=== PATIENT | female | born 2000 | race Caucasian/White ===

== ENCOUNTER 2018-06-10 20:34 | Emergency (ER) | payer OTHER ==
[~2018-06-10] VITALS: Ht 170.2 cm; Wt 71.3 kg
[2018-06-10 20:39] VITALS: BP 132/94
[2018-06-10] MEDS ORDERED: diphenhydrAMINE 25mg capsule PO ONE (22:30)
== END 2018-06-10 22:52 | disposition home or self-care (01) ==
LOC: ER 20:35
DX: T78.40XA Allergy, unspecified, initial encounter (principal)
CPT/HCPCS: 99282; Q0163

== ENCOUNTER 2020-07-01 08:09 | Emergency (ER) | payer SELFPAY ==
[~2020-07-01] VITALS: Ht 170.2 cm; Wt 68.2 kg
[2020-07-01] MEDS ORDERED: epiNEPHrine 1 mg/ml inj ONE (08:11)
[2020-07-01] MEDS ORDERED: normal saline 1000ML IV soln IVB STA (08:11)
[2020-07-01] MEDS ORDERED: albuterol 2.5 MG/3 ML nebule ONE (08:12)
[2020-07-01] MEDS ORDERED: triamcinolone acetonide 40mg/ml inj IM ONE (08:15)
[2020-07-01] MEDS ORDERED: famotidine/PF 10 mg/ml inj IV ONE (08:15)
[2020-07-01] MEDS ORDERED: albuterol 2.5 MG/3 ML nebule NEB ONE (08:15)
[2020-07-01] MEDS ORDERED: epiNEPHrine 1 mg/ml inj IM ONE (08:15)
[2020-07-01] MEDS ORDERED: diphenhydrAMINE 50 mg/ml inj IV ONE (08:15)
[2020-07-01] MEDS ORDERED: methylPREDNISolone sod succ 125mg/2ml vial IV ONE (08:15)
[2020-07-01] MEDS: ondansetron/PF 4mg/2ml inj IV ONE ×2 (08:30→08:31)
--- NOTE | 2020-07-01 08:48 | NUR ---
PT RECIECVED EPI, RT TX, PEPCID, SOLUMEDROL, KENALOG, BENADRYL, AND NS 1L. PT TOLERATED WELL. PT DENIES THROAT TIGHTNESS OR SWELLING. LUNGS CLEAR. NO OTHER NEEDS AT THIS TIME
--- NOTE | 2020-07-01 09:02 | NUR ---
PATIENT AMBULATED TO BATHROOM AT THIS TIME INDEPENDENTLY. NO SIGNS OF DISTRESS NOTED, GAIT STEADY AND BALANCED.
[2020-07-01] MEDS ORDERED: EPIN0.1521 IM (10:19)
[2020-07-01 11:31] VITALS: BP 123/69
== END 2020-07-01 11:41 | disposition home or self-care (01) ==
LOC: ER 08:10
DX: T78.1XXA Other adverse food reactions, not elsewhere classified, initial encounter (principal); R13.10 Dysphagia, unspecified; Z88.1 Allergy status to other antibiotic agents; Z88.8 Allergy status to other drugs, medicaments and biological substances; Z91.010 Allergy to peanuts; Z79.899 Other long term (current) drug therapy; X58.XXXA Exposure to other specified factors, initial encounter
CPT/HCPCS: 94640; 96361; 96372; 96374; 96375; 99285; J0171; J1200; J2930; J3301; J3490; J7030; 94760; J2405

== ENCOUNTER 2020-07-07 19:27 | Emergency (ER) | payer SELFPAY ==
[~2020-07-07] VITALS: Ht 170.2 cm; Wt 52.3 kg
[~2020-07-07 19:27] MED LIST: EPIN0.1521 IM
[2020-07-07 20:44] VITALS: BP 125/75
== END 2020-07-07 20:44 | disposition home or self-care (01) ==
LOC: ER 19:27
DX: S63.616A Unspecified sprain of right little finger, initial encounter (principal); Z88.0 Allergy status to penicillin; Z88.6 Allergy status to analgesic agent; Z91.010 Allergy to peanuts; W21.01XA Struck by football, initial encounter; Y93.89 Activity, other specified; Y92.89 Other specified places as the place of occurrence of the external cause; Y99.8 Other external cause status
CPT/HCPCS: 73140; 99283

== ENCOUNTER 2020-07-09 16:16 | Emergency (ER) | payer OTHER ==
[~2020-07-09] VITALS: Ht 170.2 cm; Wt 68.2 kg
[2020-07-09] MEDS ORDERED: famotidine/PF 10 mg/ml inj IV ONE (16:30)
[2020-07-09] MEDS ORDERED: normal saline 1000ML IV soln IVB ONE (16:30)
[2020-07-09] MEDS ORDERED: methylPREDNISolone sod succ 125mg/2ml vial IV ONE (16:30)
[2020-07-09] MEDS ORDERED: ipratropium/albuterol 3ml nebule NEB ONE (16:30)
[2020-07-09] MEDS ORDERED: EPIN0.3P3 IM (17:11)
[2020-07-09 17:21] VITALS: BP 135/67
== END 2020-07-09 17:39 | disposition home or self-care (01) ==
LOC: ER 16:17
DX: R00.0 Tachycardia, unspecified (principal); T78.1XXA Other adverse food reactions, not elsewhere classified, initial encounter; R06.02 Shortness of breath; R07.89 Other chest pain; Z88.1 Allergy status to other antibiotic agents; Z88.8 Allergy status to other drugs, medicaments and biological substances; Z91.010 Allergy to peanuts; Z79.899 Other long term (current) drug therapy; X58.XXXA Exposure to other specified factors, initial encounter
CPT/HCPCS: 93005; 94640; 96374; 96375; 99291; J2930; J3490; J7030; 94760

== ENCOUNTER 2020-07-10 23:28 | Emergency (ER) | payer BC, OTHER ==
[~2020-07-10] VITALS: Ht 170.2 cm; Wt 84.1 kg
[~2020-07-10 23:28] MED LIST changes: +EPIN0.3P3 IM
[2020-07-11 00:02] LABS: BASOPHILS % (AUTO) 0.2 % (0-1); EOSINOPHILS % (AUTO) 0.2 % (0-6); HEMATOCRIT 38.6 % (35.0-45.0); LYMPHOCYTES % (AUTO) 29.2 % (21-51); MEAN CORPUSCULAR HEMOGLOBIN 30.5 PG (27.0-31.0); MEAN CORPUSCULAR HGB CONC 33.7 g/dL (33.0-36.5); MEAN CORPUSCULAR VOLUME 90.4 FL (78-98); MEAN PLATELET VOLUME 8.3 FL (7.4-10.4); MONOCYTES # (AUTO) 0.7 X10'3 (0-0.9); MONOCYTES % (AUTO) 7.1 % (2-12); NEUTROPHILS # (AUTO) 6.5 X10'3 (1.8-7.7); NEUTROPHILS % (AUTO) 63.3 % (42-75); PLATELET COUNT 391 X10'3 (140-440); RED BLOOD COUNT 4.27 X10'6 (4.20-5.60); RED CELL DISTRIBUTION WIDTH 14.3 % (11.5-14.5); WHITE BLOOD COUNT 10.2 X10'3 (4.5-11.0)
[2020-07-11 00:09] LABS: URINE HCG NEGATIVE (NEG)
[2020-07-11 00:11] LABS: CLARITY,URINE SLIGHTLY CLOUDY (Clear); GLUCOSE, URINE NEGATIVE (Neg); KETONES,URINE TRACE mg/dl (Neg); LEUKOCYTE ESTERASE ,URINE NEGATIVE (Neg); NITRITES, URINE NEGATIVE (Neg); OCCULT BLOOD,URINE NEGATIVE (Neg); PH,URINE 5.5 (4.8-8.0); PROTEIN,URINE NEGATIVE (Neg); UROBILINOGEN,URINE 0.2 E.U/dL (0.2-1.0)
[2020-07-11 00:16] LABS: COLOR,URINE DARK YELLOW (Yellow); UA COLLECTION TYPE CLN CATCH MIDSTREAM
[2020-07-11 00:17] LABS: ALANINE AMINOTRANSFERASE 22 U/L (12-78); ALBUMIN/GLOBULIN RATIO 1.3 (1.1-1.5); ALKALINE PHOSPHATASE 74 IU/L (46-116); ANION GAP 10 (8-16); ASPARTATE AMINO TRANSFERASE 10 U/L (10-37); BILIRUBIN,TOTAL 0.3 MG/DL (0.1-1.0); BLOOD UREA NITROGEN 7 MG/DL (7-18); BUN/CREATININE RATIO 6.2 (6.6-38.0); CALCIUM 8.9 MG/DL (8.5-10.1); CHLORIDE 108 MMOL/L (99-107); CREATININE 1.13 MG/DL (0.40-0.90); GLUCOSE 109 MG/DL (70-104); POTASSIUM 3.5 MMOL/L (3.5-5.1); SODIUM 143 MMOL/L (135-145); TOTAL CARBON DIOXIDE 24.9 MMOL/L (24-32); TOTAL PROTEIN 7.2 G/DL (6.4-8.2); eGFR 61 ML/MIN
[2020-07-11 00:18] LABS: BACTERIA,URINE 1+ /HPF (Neg); CAL OXALATE CRYSTALS 4+ /HPF (NEGATIVE); RBC,URINE NONE SEEN /HPF (0-2); SQUAMOUS EPITHELIAL CELL,UR MANY /LPF (FEW); WBC,URINE 0-4 /HPF (0-4)
[2020-07-11 03:34] VITALS: BP 112/67
--- NOTE | 2020-07-11 03:35 | NUR ---
MD Garcia at bedside examining patient.
[2020-07-11] MEDS ORDERED: naproxen 500mg tablet PO ONE (03:40)
[2020-07-11] MEDS ORDERED: NAPR-56 PO (03:48)
== END 2020-07-11 04:00 | disposition home or self-care (01) ==
LOC: ER 23:29
DX: R10.31 Right lower quadrant pain (principal); R11.2 Nausea with vomiting, unspecified; Z88.1 Allergy status to other antibiotic agents; Z88.8 Allergy status to other drugs, medicaments and biological substances; Z91.010 Allergy to peanuts; Z79.899 Other long term (current) drug therapy
CPT/HCPCS: 36415; 80053; 81001; 81003; 81025; 85025; 99283

== ENCOUNTER 2020-07-11 15:27 | Emergency (ER) | payer OTHER ==
[~2020-07-11] VITALS: Ht 170.2 cm; Wt 92.1 kg
[~2020-07-11 15:27] MED LIST changes: +NAPR-56 PO
[2020-07-11 17:19] LABS: BASOPHILS % (AUTO) 0.5 % (0-1); EOSINOPHILS % (AUTO) 0.5 % (0-6); HEMATOCRIT 38.8 % (35.0-45.0); LYMPHOCYTES # (AUTO) 2.1 X10'3 (1.1-4.8); LYMPHOCYTES % (AUTO) 26.8 % (21-51); MEAN CORPUSCULAR HEMOGLOBIN 30.4 PG (27.0-31.0); MEAN CORPUSCULAR HGB CONC 33.6 g/dL (33.0-36.5); MEAN CORPUSCULAR VOLUME 90.6 FL (78-98); MEAN PLATELET VOLUME 8.4 FL (7.4-10.4); MONOCYTES # (AUTO) 0.7 X10'3 (0-0.9); MONOCYTES % (AUTO) 8.4 % (2-12); NEUTROPHILS # (AUTO) 5.1 X10'3 (1.8-7.7); NEUTROPHILS % (AUTO) 63.8 % (42-75); PLATELET COUNT 357 X10'3 (140-440); RED BLOOD COUNT 4.29 X10'6 (4.20-5.60); RED CELL DISTRIBUTION WIDTH 14.7 % (11.5-14.5)
[2020-07-11 17:39] LABS: ALANINE AMINOTRANSFERASE 19 U/L (12-78); ALBUMIN 4.1 G/DL (3.4-5.0); ALBUMIN/GLOBULIN RATIO 1.3 (1.1-1.5); ALKALINE PHOSPHATASE 80 IU/L (46-116); ANION GAP 9 (8-16); ASPARTATE AMINO TRANSFERASE 11 U/L (10-37); BILIRUBIN,TOTAL 0.3 MG/DL (0.1-1.0); BLOOD UREA NITROGEN 8 MG/DL (7-18); CALCIUM 9.1 MG/DL (8.5-10.1); CHLORIDE 106 MMOL/L (99-107); CREATININE 1.14 MG/DL (0.40-0.90); GLUCOSE 85 MG/DL (70-104); POTASSIUM 3.6 MMOL/L (3.5-5.1); SODIUM 144 MMOL/L (135-145); TOTAL CARBON DIOXIDE 29.3 MMOL/L (24-32); TOTAL PROTEIN 7.3 G/DL (6.4-8.2); eGFR 60 ML/MIN
[2020-07-11] MEDS ORDERED: diphenhydrAMINE 50 mg/ml inj IV ONE ×2 (17:40→18:05)
[2020-07-11] MEDS ORDERED: diphenhydrAMINE 25mg capsule PO ONE (17:55)
--- NOTE | 2020-07-11 19:06 | NUR ---
Assumed patient care. The PA had given this patient a UA cup to get a urine sample. Patient came out of bathroom, she provided a sample, she did not clean self. This was not a CCMS. Arvin TIDWELL desires a CCMS as expected. The patient is instructed in CCMS and cleaning procedure. We are awaiting another UA sample.
[2020-07-11 19:27] VITALS: BP 112/72
== END 2020-07-11 19:30 | disposition home or self-care (01) ==
LOC: ER 15:28
DX: L73.9 Follicular disorder, unspecified (principal); N83.201 Unspecified ovarian cyst, right side; R10.31 Right lower quadrant pain; Z88.1 Allergy status to other antibiotic agents; Z88.8 Allergy status to other drugs, medicaments and biological substances; Z91.010 Allergy to peanuts; Z79.899 Other long term (current) drug therapy
CPT/HCPCS: 36415; 76856; 80053; 85025; 93976; 96374; 99284; J1200

== ENCOUNTER 2020-07-12 13:49 | Emergency (ER) | payer OTHER ==
[~2020-07-12] VITALS: Ht 170.2 cm; Wt 92.8 kg
[2020-07-12 14:01] VITALS: BP 130/78
[2020-07-12 14:25] LABS: BASOPHILS % (AUTO) 0.5 % (0-1); EOSINOPHILS # (AUTO) 0.1 X10'3 (0-0.9); EOSINOPHILS % (AUTO) 0.9 % (0-6); HEMATOCRIT 38.5 % (35.0-45.0); LYMPHOCYTES # (AUTO) 2.3 X10'3 (1.1-4.8); LYMPHOCYTES % (AUTO) 31.6 % (21-51); MEAN CORPUSCULAR HEMOGLOBIN 30.5 PG (27.0-31.0); MEAN CORPUSCULAR HGB CONC 33.7 g/dL (33.0-36.5); MEAN CORPUSCULAR VOLUME 90.3 FL (78-98); MEAN PLATELET VOLUME 8.3 FL (7.4-10.4); MONOCYTES # (AUTO) 0.5 X10'3 (0-0.9); MONOCYTES % (AUTO) 6.8 % (2-12); NEUTROPHILS # (AUTO) 4.3 X10'3 (1.8-7.7); NEUTROPHILS % (AUTO) 60.2 % (42-75); PLATELET COUNT 341 X10'3 (140-440); RED BLOOD COUNT 4.27 X10'6 (4.20-5.60); RED CELL DISTRIBUTION WIDTH 14.3 % (11.5-14.5); WHITE BLOOD COUNT 7.2 X10'3 (4.5-11.0)
[2020-07-12 14:33] LABS: ALANINE AMINOTRANSFERASE 17 U/L (12-78); ALBUMIN/GLOBULIN RATIO 1.3 (1.1-1.5); ALKALINE PHOSPHATASE 78 IU/L (46-116); ANION GAP 10 (8-16); ASPARTATE AMINO TRANSFERASE 11 U/L (10-37); BILIRUBIN,TOTAL 0.6 MG/DL (0.1-1.0); BLOOD UREA NITROGEN 12 MG/DL (7-18); BUN/CREATININE RATIO 10.2 (6.6-38.0); CHLORIDE 106 MMOL/L (99-107); CREATININE 1.18 MG/DL (0.40-0.90); GLUCOSE 101 MG/DL (70-104); LIPASE 157 U/L (73-393); POTASSIUM 3.7 MMOL/L (3.5-5.1); SODIUM 142 MMOL/L (135-145); TOTAL CARBON DIOXIDE 25.6 MMOL/L (24-32); TOTAL PROTEIN 7.1 G/DL (6.4-8.2); eGFR 58 ML/MIN
--- NOTE | 2020-07-12 17:03 | NUR ---
Patient not in lobby x3, attempted to call patient at listed number. No answer; voicemail box full. aware.
== END 2020-07-12 17:04 | disposition left against medical advice (07) ==
LOC: ER 13:50
DX: R10.31 Right lower quadrant pain (principal); Z53.21 Procedure and treatment not carried out due to patient leaving prior to being seen by health care provider
CPT/HCPCS: 36415; 80053; 83690; 85025; 99281

== ENCOUNTER 2020-07-14 09:58 | Emergency (ER) | payer OTHER ==
[~2020-07-14] VITALS: Ht 170.2 cm; Wt 81.8 kg
[2020-07-14 10:02] VITALS: BP 136/95
[2020-07-14] MEDS ORDERED: ipratropium/albuterol 3ml nebule NEB ONE (10:05)
[2020-07-14] MEDS ORDERED: dexamethasone 4mg tablet PO ONE (10:05)
[2020-07-14] MEDS ORDERED: PRED20TA PO (10:11)
[2020-07-14] MEDS ORDERED: ALBU8HFA PO (10:11)
== END 2020-07-14 11:03 | disposition home or self-care (01) ==
LOC: ER 09:59
DX: J45.901 Unspecified asthma with (acute) exacerbation (principal); R20.0 Anesthesia of skin; R06.02 Shortness of breath; Z88.1 Allergy status to other antibiotic agents; Z88.8 Allergy status to other drugs, medicaments and biological substances; Z91.010 Allergy to peanuts; Z79.899 Other long term (current) drug therapy
CPT/HCPCS: 93005; 94640; 94760; 99283

== ENCOUNTER 2020-07-14 23:53 | Emergency (ER) | payer OTHER ==
[~2020-07-14] VITALS: Ht 170.2 cm; Wt 81.8 kg
[~2020-07-14 23:53] MED LIST changes: +ALBU8HFA PO; +PRED20TA PO
[2020-07-14 23:58] VITALS: BP 113/77
[2020-07-15] MEDS ORDERED: acetaminophen 325mg tablet PO ONE (00:05)
[2020-07-15] MEDS ORDERED: dicyclomine 10 MG capsule PO ONE (00:05)
== END 2020-07-15 00:32 | disposition home or self-care (01) ==
LOC: ER 23:53
DX: R10.10 Upper abdominal pain, unspecified (principal); Z88.1 Allergy status to other antibiotic agents; Z88.8 Allergy status to other drugs, medicaments and biological substances; Z91.010 Allergy to peanuts; Z79.899 Other long term (current) drug therapy
CPT/HCPCS: 99283

== ENCOUNTER 2020-07-18 10:02 | Emergency (ER) | payer OTHER ==
[~2020-07-18] VITALS: Ht 170.2 cm; Wt 81.8 kg
[2020-07-18] MEDS ORDERED: CefTRIAXone 250MG IM Kit w/LIDOcaine IM ONE (13:00)
[2020-07-18] MEDS ORDERED: LEVONORGESTREL 1.5 MG (Plan B One-Step) TABLET PO (13:00)
[2020-07-18] MEDS ORDERED: metroNIDAZOLE 500mg tablet PO ONE (13:00)
[2020-07-18] MEDS ORDERED: azithromycin 250mg tablet PO ONE (13:00)
[2020-07-18 13:11] LABS: CLARITY,URINE CLEAR (Clear); COLOR,URINE STRAW (Yellow); GLUCOSE, URINE NEGATIVE (Neg); KETONES,URINE NEGATIVE (Neg); LEUKOCYTE ESTERASE ,URINE NEGATIVE (Neg); NITRITES, URINE NEGATIVE (Neg); OCCULT BLOOD,URINE NEGATIVE (Neg); PROTEIN,URINE NEGATIVE (Neg); UROBILINOGEN,URINE 0.2 E.U/dL (0.2-1.0)
[2020-07-18 13:13] LABS: UA COLLECTION TYPE OTHER
--- NOTE | 2020-07-18 17:00 | NUR ---
1220: pt gave verbal consent for SART exam. Olga, pt advocate [facility] present 1225: Urine obtained 1230: Pt gave written consent for SART exam which was started. 1345: DELMIS Pabon in for medical assement 1354:Prophylactic STD/pregancy meds adminstered after education provided & questions answered. 1400: Pt refused offer for shower. 1405: Pt escorted to [facility]inda christiansen/ Olga and this rn accompanying pt.
[2020-07-18 17:18] VITALS: BP 130/78
== END 2020-07-18 14:05 | disposition home or self-care (01) ==
LOC: EEVIPCON 10:03 → ER 10:03
DX: S40.022A Contusion of left upper arm, initial encounter (principal); T76.21XA Adult sexual abuse, suspected, initial encounter; Z88.1 Allergy status to other antibiotic agents; Z88.8 Allergy status to other drugs, medicaments and biological substances; Z79.899 Other long term (current) drug therapy
CPT/HCPCS: 81003; 99284; J0696; J3490

== ENCOUNTER 2020-07-23 15:35 | Emergency (ER) | payer OTHER ==
[~2020-07-23] VITALS: Ht 170.2 cm; Wt 94.1 kg
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
[2020-07-23] MEDS ORDERED: proMETHazine 6.25 mg/5 ml UD oral syrup PO STA ×2 (16:51→16:59)
[2020-07-23 17:27] LABS: URINE HCG NEGATIVE (NEG)
[2020-07-23 17:28] LABS: CLARITY,URINE CLOUDY (Clear); COLOR,URINE YELLOW (Yellow); GLUCOSE, URINE NEGATIVE (Neg); KETONES,URINE NEGATIVE (Neg); LEUKOCYTE ESTERASE ,URINE NEGATIVE (Neg); NITRITES, URINE NEGATIVE (Neg); OCCULT BLOOD,URINE NEGATIVE (Neg); PH,URINE 5.5 (4.8-8.0); PROTEIN,URINE NEGATIVE (Neg); UA COLLECTION TYPE CLN CATCH MIDSTREAM; UROBILINOGEN,URINE 0.2 E.U/dL (0.2-1.0)
[2020-07-23 17:35] LABS: MUCUS STRANDS FEW /LPF (Neg); SQUAMOUS EPITHELIAL CELL,UR MANY /LPF (FEW)
[2020-07-23 17:36] LABS: BACTERIA,URINE 2+ /HPF (Neg); RBC,URINE 0-2 /HPF (0-2); WBC,URINE 0-4 /HPF (0-4)
[2020-07-23] MEDS ORDERED: DICY10CA88 PO (17:48)
[2020-07-23] MEDS ORDERED: MAG355OR18 PO (17:48)
[2020-07-23 17:57] VITALS: BP 113/77
== END 2020-07-23 18:01 | disposition home or self-care (01) ==
LOC: ER 15:36
DX: R11.2 Nausea with vomiting, unspecified (principal); Z88.8 Allergy status to other drugs, medicaments and biological substances; Z88.1 Allergy status to other antibiotic agents; Z91.010 Allergy to peanuts; Z79.899 Other long term (current) drug therapy
CPT/HCPCS: 81001; 81025; 99283; Q0169; 96374; 96375; 96376; 99284

== ENCOUNTER 2020-07-25 15:22 | Emergency (ER) | payer OTHER ==
[~2020-07-25] VITALS: Ht 170.2 cm; Wt 84.1 kg
[~2020-07-25 15:22] MED LIST changes: +DICY10CA88 PO; +MAG355OR18 PO
[2020-07-25 15:24] VITALS: BP 139/79
--- NOTE | 2020-07-25 15:58 | NUR ---
Assessed pt, as she was in for SART ~ 1 wk ago. Pt verbalized increased anxiety, in part because her typical social network is not available to her. Pt denies S/H/I at this time. She denies audio/visual hallucinations as well.Pt came to the ER "because I didn't know where else to go." [facility] was contacted and has counselors in house who pt can speak with today. Pt is amenable to this poc. Situation explained to DELMIS Cazares who is also on board with pt going to [facility] for counseling assistance. BRIAN Harkins aware.
== END 2020-07-25 16:16 | disposition home or self-care (01) ==
LOC: ER 15:23
DX: F32.9 Major depressive disorder, single episode, unspecified (principal); M25.561 Pain in right knee; M25.562 Pain in left knee; Z88.1 Allergy status to other antibiotic agents; Z88.8 Allergy status to other drugs, medicaments and biological substances; Z91.010 Allergy to peanuts; Z79.899 Other long term (current) drug therapy
CPT/HCPCS: 99283

== ENCOUNTER 2020-07-26 16:01 | Emergency (ER) | payer OTHER ==
[~2020-07-26] VITALS: Ht 170.2 cm; Wt 81.9 kg
[2020-07-26 16:33] VITALS: BP 143/84
== END 2020-07-26 17:03 | disposition left against medical advice (07) ==
LOC: ER 16:01
DX: M25.562 Pain in left knee (principal); Z53.21 Procedure and treatment not carried out due to patient leaving prior to being seen by health care provider

== ENCOUNTER 2020-08-06 06:14 | Emergency (ER) | payer OTHER ==
[~2020-08-06] VITALS: Ht 170.2 cm; Wt 81.8 kg
[2020-08-06 06:19] VITALS: BP 130/88
[2020-08-06] MEDS ORDERED: albuterol 2.5 MG/3 ML nebule NEB ONE (07:15)
[2020-08-06] MEDS ORDERED: predniSONE 20 mg tablet PO ONE (07:15)
[2020-08-06] MEDS ORDERED: PRED20TA PO (07:23)
[2020-08-06] MEDS ORDERED: BECL7.3A INH (07:23)
[2020-08-06] MEDS ORDERED: ALBU8HFA PO (07:23)
== END 2020-08-06 08:48 | disposition home or self-care (01) ==
LOC: ER 06:15
DX: J45.901 Unspecified asthma with (acute) exacerbation (principal); F17.200 Nicotine dependence, unspecified, uncomplicated; Z88.1 Allergy status to other antibiotic agents; Z88.6 Allergy status to analgesic agent; Z91.041 Radiographic dye allergy status; Z91.010 Allergy to peanuts; Z88.8 Allergy status to other drugs, medicaments and biological substances; Z79.899 Other long term (current) drug therapy
CPT/HCPCS: 94640; 99283; J7512; 94760

== ENCOUNTER 2020-09-12 16:04 | Emergency (ER) | payer OTHER ==
[~2020-09-12] VITALS: Ht 170.2 cm; Wt 65.0 kg
[~2020-09-12 16:04] MED LIST changes: +BECL7.3A INH; -MAG355OR18 PO; -NAPR-56 PO; -PRED20TA PO
[2020-09-12 16:14] VITALS: BP 137/85
== END 2020-09-12 17:24 | disposition home or self-care (01) ==
LOC: ER 16:05
DX: M79.641 Pain in right hand (principal); J45.909 Unspecified asthma, uncomplicated; Z88.1 Allergy status to other antibiotic agents; Z88.8 Allergy status to other drugs, medicaments and biological substances; Z91.010 Allergy to peanuts; Z79.899 Other long term (current) drug therapy
CPT/HCPCS: 73130; 99283

== ENCOUNTER 2020-09-25 10:15 | Emergency (ER) | payer OTHER ==
[~2020-09-25] VITALS: Ht 170.2 cm; Wt 94.5 kg
[2020-09-25 10:30] VITALS: BP 126/85
--- NOTE | 2020-09-25 12:23 | NUR ---
Second call not in lobby
== END 2020-09-25 13:33 | disposition left against medical advice (07) ==
LOC: ER 10:16
DX: M25.511 Pain in right shoulder (principal); Z53.21 Procedure and treatment not carried out due to patient leaving prior to being seen by health care provider
CPT/HCPCS: 73030

== ENCOUNTER 2020-09-29 08:34 | Emergency (ER) | payer OTHER ==
[~2020-09-29] VITALS: Ht 170.2 cm; Wt 98.7 kg
[2020-09-29 09:10] VITALS: BP 126/83
== END 2020-09-29 16:45 | disposition home or self-care (01) ==
LOC: ER 08:34 → EEVIPCON 08:34 → ER 16:45
DX: T76.21XA Adult sexual abuse, suspected, initial encounter (principal); J45.909 Unspecified asthma, uncomplicated; Z79.899 Other long term (current) drug therapy; Z88.0 Allergy status to penicillin; Z88.6 Allergy status to analgesic agent; Z88.8 Allergy status to other drugs, medicaments and biological substances; Z91.010 Allergy to peanuts
CPT/HCPCS: 99284

== ENCOUNTER 2020-10-02 11:03 | Emergency (ER) | payer OTHER ==
[~2020-10-02] VITALS: Ht 172.7 cm; Wt 93.2 kg
[2020-10-02 11:11] VITALS: BP 122/77
--- NOTE | 2020-10-02 13:04 | NUR ---
Attempted to call patient back to a room for the third time and patient was not in lobby. Called patient at listed number without answer. Dr. Chapinfs aware.
== END 2020-10-02 13:09 | disposition left against medical advice (07) ==
LOC: ER 11:03
DX: T78.40XA Allergy, unspecified, initial encounter (principal); Z53.21 Procedure and treatment not carried out due to patient leaving prior to being seen by health care provider; Y92.89 Other specified places as the place of occurrence of the external cause

== ENCOUNTER 2020-11-27 09:47 | Emergency (ER) | payer OTHER, MEDICAID ==
[~2020-11-27] VITALS: Ht 172.7 cm; Wt 87.7 kg
[2020-11-27] MEDS ORDERED: BECL7.3A INH (10:48)
[2020-11-27 11:07] VITALS: BP 128/76
== END 2020-11-27 11:11 | disposition home or self-care (01) ==
LOC: ER 09:48
DX: J45.901 Unspecified asthma with (acute) exacerbation (principal); F32.9 Major depressive disorder, single episode, unspecified; Z88.1 Allergy status to other antibiotic agents; Z88.6 Allergy status to analgesic agent; Z88.8 Allergy status to other drugs, medicaments and biological substances; Z91.010 Allergy to peanuts
CPT/HCPCS: 99283

== ENCOUNTER 2020-12-02 11:46 | Emergency (ER) | payer OTHER, MEDICAID ==
[~2020-12-02] VITALS: Ht 172.7 cm; Wt 87.7 kg
[2020-12-02] MEDS ORDERED: methylPREDNISolone sod succ 125mg/2ml vial IV ONE (11:55)
[2020-12-02] MEDS ORDERED: proCHLORperazine 10 MG/2 ml inj IV ONE (11:55)
[2020-12-02] MEDS ORDERED: famotidine/PF 10 mg/ml inj IV ONE (11:55)
[2020-12-02] MEDS ORDERED: racepinephrine 11.25mg/0.5ml nebule IH ONE (11:55)
[2020-12-02 12:13] LABS: BASOPHILS # (AUTO) 0.1 X10'3 (0-0.2); BASOPHILS % (AUTO) 0.7 % (0-1); EOSINOPHILS # (AUTO) 0.5 X10'3 (0-0.9); EOSINOPHILS % (AUTO) 6.1 % (0-6); HEMATOCRIT 39.5 % (35.0-45.0); HEMOGLOBIN 13.4 g/dl (12.0-16.0); LYMPHOCYTES # (AUTO) 2.7 X10'3 (1.1-4.8); LYMPHOCYTES % (AUTO) 33.7 % (21-51); MEAN CORPUSCULAR HEMOGLOBIN 30.7 PG (27.0-31.0); MEAN CORPUSCULAR HGB CONC 33.8 g/dL (33.0-36.5); MEAN CORPUSCULAR VOLUME 90.9 FL (78-98); MEAN PLATELET VOLUME 7.9 FL (7.4-10.4); MONOCYTES # (AUTO) 0.6 X10'3 (0-0.9); MONOCYTES % (AUTO) 7.9 % (2-12); NEUTROPHILS # (AUTO) 4.1 X10'3 (1.8-7.7); NEUTROPHILS % (AUTO) 51.6 % (42-75); PLATELET COUNT 350 X10'3 (140-440); RED BLOOD COUNT 4.35 X10'6 (4.20-5.60); WHITE BLOOD COUNT 7.9 X10'3 (4.5-11.0)
[2020-12-02 12:26] LABS: ALANINE AMINOTRANSFERASE 20 U/L (12-78); ALBUMIN/GLOBULIN RATIO 1.1 (1.1-1.5); ALKALINE PHOSPHATASE 87 IU/L (46-116); ANION GAP 11 (8-16); ASPARTATE AMINO TRANSFERASE 16 U/L (10-37); BILIRUBIN,TOTAL 0.5 MG/DL (0.1-1.0); BLOOD UREA NITROGEN 11 MG/DL (7-18); BUN/CREATININE RATIO 11.3 (6.6-38.0); CALCIUM 9.1 MG/DL (8.5-10.1); CHLORIDE 106 MMOL/L (99-107); CREATININE 0.97 MG/DL (0.40-0.90); GLUCOSE 115 MG/DL (70-104); SODIUM 142 MMOL/L (135-145); TOTAL CARBON DIOXIDE 25.3 MMOL/L (24-32); TOTAL PROTEIN 7.7 G/DL (6.4-8.2); eGFR 72 ML/MIN
[2020-12-02 12:35] LABS: POTASSIUM 2.8 MMOL/L (3.5-5.1)
[2020-12-02] MEDS ORDERED: potassium Cl 20 mEq SR tablet PO STA (12:36)
[2020-12-02] MEDS ORDERED: EPIN0.3P3 IM (12:38)
[2020-12-02] MEDS ORDERED: magnesium 2GM in 50ml NS 50 ML IV ONE (12:40)
[2020-12-02] MEDS ORDERED: potassium Cl 10 mEq/100mL bag IV ONE (12:40)
--- NOTE | 2020-12-02 14:05 | NUR ---
Note lastsahil in EDM - 12/02/20 at 1505 by KIRSTEN Pt is awake and alert. Wearing a C-collar. Stated that 1.5 wks ago he fell down 8 stairs while carrying a laundry basket. His head went over the basket and hit the stairs first. Now he feels a "crunch" in his neck followed by tingling in his R UE.
--- NOTE | 2020-12-02 16:55 | NUR ---
Pt given and understands d/c instructions. Ambulatory with a steady gait. IV d/c'd catheter was intact.
[2020-12-02 17:00] VITALS: BP 116/76
== END 2020-12-02 16:55 | disposition home or self-care (01) ==
LOC: ER 11:47
DX: T78.02XA Anaphylactic reaction due to shellfish (crustaceans), initial encounter (principal); E87.6 Hypokalemia; J45.909 Unspecified asthma, uncomplicated; Z79.899 Other long term (current) drug therapy; Z91.041 Radiographic dye allergy status; Z88.1 Allergy status to other antibiotic agents; Z88.6 Allergy status to analgesic agent; Z88.8 Allergy status to other drugs, medicaments and biological substances; Z91.010 Allergy to peanuts
CPT/HCPCS: 36415; 71045; 80053; 85025; 93005; 96365; 96366; 96375; 99291; J0780; J2930; J3475; J3480; J3490; 96367

== ENCOUNTER 2020-12-22 09:45 | Emergency (ER) | payer OTHER, MEDICAID ==
[~2020-12-22] VITALS: Ht 170.2 cm; Wt 101.0 kg
[2020-12-22 10:25] VITALS: BP 134/60
[2020-12-22] MEDS ORDERED: ACET-1025 PO (11:27)
== END 2020-12-22 11:30 | disposition home or self-care (01) ==
LOC: ER 09:46
DX: M25.511 Pain in right shoulder (principal); J45.909 Unspecified asthma, uncomplicated; Z90.710 Acquired absence of both cervix and uterus; Z88.1 Allergy status to other antibiotic agents; Z88.5 Allergy status to narcotic agent; Z88.8 Allergy status to other drugs, medicaments and biological substances; Z91.010 Allergy to peanuts; Z79.899 Other long term (current) drug therapy; W11.XXXA Fall on and from ladder, initial encounter; Y93.89 Activity, other specified; Y92.89 Other specified places as the place of occurrence of the external cause; Y99.8 Other external cause status
CPT/HCPCS: 73030; 99283

== ENCOUNTER 2021-02-12 10:17 | Emergency (ER) | payer OTHER, MEDICAID ==
[~2021-02-12] VITALS: Ht 172.7 cm; Wt 84.1 kg
[2021-02-12 10:48] VITALS: BP 127/89
[2021-02-12 11:00] LABS: BASOPHILS # (AUTO) 0.1 X10'3 (0-0.2); BASOPHILS % (AUTO) 0.8 % (0-1); EOSINOPHILS # (AUTO) 0.2 X10'3 (0-0.9); EOSINOPHILS % (AUTO) 3.1 % (0-6); HEMATOCRIT 40.4 % (35.0-45.0); HEMOGLOBIN 13.8 g/dl (12.0-16.0); LYMPHOCYTES # (AUTO) 1.6 X10'3 (1.1-4.8); LYMPHOCYTES % (AUTO) 19.9 % (21-51); MEAN CORPUSCULAR HEMOGLOBIN 30.9 PG (27.0-31.0); MEAN CORPUSCULAR HGB CONC 34.3 g/dL (33.0-36.5); MEAN CORPUSCULAR VOLUME 90.2 FL (78-98); MONOCYTES # (AUTO) 0.5 X10'3 (0-0.9); MONOCYTES % (AUTO) 6.3 % (2-12); NEUTROPHILS # (AUTO) 5.6 X10'3 (1.8-7.7); NEUTROPHILS % (AUTO) 69.9 % (42-75); PLATELET COUNT 371 X10'3 (140-440); RED BLOOD COUNT 4.48 X10'6 (4.20-5.60); RED CELL DISTRIBUTION WIDTH 12.3 % (11.5-14.5)
[2021-02-12] MEDS ORDERED: albuterol 2.5 MG/3 ML nebule NEB ONE (11:00)
[2021-02-12 11:22] LABS: ALANINE AMINOTRANSFERASE 20 U/L (12-78); ALKALINE PHOSPHATASE 83 IU/L (46-116); ANION GAP 10 (8-16); ASPARTATE AMINO TRANSFERASE 21 U/L (10-37); BILIRUBIN,TOTAL 0.7 MG/DL (0.1-1.0); BLOOD UREA NITROGEN 11 MG/DL (7-18); BUN/CREATININE RATIO 13.4 (6.6-38.0); CHLORIDE 104 MMOL/L (99-107); CREATININE 0.82 MG/DL (0.40-0.90); GLUCOSE 89 MG/DL (70-104); SODIUM 139 MMOL/L (135-145); TOTAL CARBON DIOXIDE 24.6 MMOL/L (24-32); TOTAL PROTEIN 8.2 G/DL (6.4-8.2); eGFR 87 ML/MIN
[2021-02-12 11:24] LABS: POTASSIUM 3.9 MMOL/L (3.5-5.1)
== END 2021-02-12 13:01 | disposition home or self-care (01) ==
LOC: ER 10:18
DX: J45.901 Unspecified asthma with (acute) exacerbation (principal); Z20.822 Contact with and (suspected) exposure to COVID-19; R06.02 Shortness of breath; F32.9 Major depressive disorder, single episode, unspecified; Z88.1 Allergy status to other antibiotic agents; Z88.8 Allergy status to other drugs, medicaments and biological substances; Z91.010 Allergy to peanuts; Z79.899 Other long term (current) drug therapy
CPT/HCPCS: 36415; 71045; 80053; 85025; 87635; 94640; 99284; C9803; 94760

== ENCOUNTER 2021-03-17 02:50 | Emergency (ER) | payer MEDICAID, OTHER ==
[~2021-03-17] VITALS: Ht 170.2 cm; Wt 81.8 kg
[2021-03-17] MEDS ORDERED: NO HOME MEDS (03:16)
[2021-03-17 03:21] LABS: CLARITY,URINE SLIGHTLY CLOUDY (Clear); COLOR,URINE YELLOW (Yellow); GLUCOSE, URINE NEGATIVE (Neg); KETONES,URINE NEGATIVE (Neg); LEUKOCYTE ESTERASE ,URINE NEGATIVE (Neg); NITRITES, URINE NEGATIVE (Neg); OCCULT BLOOD,URINE TRACE-LYSED (Neg); PROTEIN,URINE NEGATIVE (Neg); UROBILINOGEN,URINE 0.2 E.U/dL (0.2-1.0)
[2021-03-17 03:33] LABS: UA COLLECTION TYPE CLN CATCH MIDSTREAM
[2021-03-17 03:35] LABS: MUCUS STRANDS FEW /LPF (Neg); SQUAMOUS EPITHELIAL CELL,UR MANY /LPF (FEW); URINE AMPHETAMINE SCREEN NEGATIVE (Neg); URINE BARBITUATE SCREEN NEGATIVE (Neg); URINE BENZODIAZEPINES SCREEN NEGATIVE (Neg); URINE CANNABINOID SCREEN NEGATIVE (Neg); URINE COCAINE SCREEN NEGATIVE (Neg); URINE METHADONE SCREEN NEGATIVE (Neg); URINE OPIATE SCREEN NEGATIVE (Neg); URINE PHENCYCLIDINE SCREEN NEGATIVE (Neg)
[2021-03-17 03:40] LABS: BACTERIA,URINE 2+ /HPF (Neg); WBC,URINE 0-4 /HPF (0-4)
[2021-03-17 03:40] LABS: BASOPHILS % (AUTO) 0.6 % (0-1); EOSINOPHILS # (AUTO) 0.1 X10'3 (0-0.9); HEMATOCRIT 38.7 % (35.0-45.0); HEMOGLOBIN 13.1 g/dl (12.0-16.0); LYMPHOCYTES # (AUTO) 2.7 X10'3 (1.1-4.8); LYMPHOCYTES % (AUTO) 36.2 % (21-51); MEAN CORPUSCULAR HEMOGLOBIN 30.4 PG (27.0-31.0); MEAN CORPUSCULAR HGB CONC 33.8 g/dL (33.0-36.5); MEAN PLATELET VOLUME 8.5 FL (7.4-10.4); MONOCYTES # (AUTO) 0.6 X10'3 (0-0.9); MONOCYTES % (AUTO) 7.6 % (2-12); NEUTROPHILS % (AUTO) 53.6 % (42-75); PLATELET COUNT 373 X10'3 (140-440); RED CELL DISTRIBUTION WIDTH 12.7 % (11.5-14.5); WHITE BLOOD COUNT 7.5 X10'3 (4.5-11.0)
[2021-03-17 03:57] LABS: ALANINE AMINOTRANSFERASE 21 U/L (12-78); ALBUMIN 4.1 G/DL (3.4-5.0); ALBUMIN/GLOBULIN RATIO 1.1 (1.1-1.5); ALKALINE PHOSPHATASE 81 IU/L (46-116); ANION GAP 13 (8-16); ASPARTATE AMINO TRANSFERASE 14 U/L (10-37); BILIRUBIN,TOTAL 0.3 MG/DL (0.1-1.0); BLOOD UREA NITROGEN 13 MG/DL (7-18); BUN/CREATININE RATIO 13.8 (6.6-38.0); CALCIUM 9.3 MG/DL (8.5-10.1); CHLORIDE 103 MMOL/L (99-107); CREATININE 0.94 MG/DL (0.40-0.90); ETHANOL < 0.010 GM/DL (0.0-0.010); GLUCOSE 97 MG/DL (70-104); POTASSIUM 3.6 MMOL/L (3.5-5.1); SODIUM 141 MMOL/L (135-145); TOTAL CARBON DIOXIDE 24.8 MMOL/L (24-32); TOTAL PROTEIN 7.7 G/DL (6.4-8.2); eGFR 74 ML/MIN
[2021-03-17 04:06] LABS: URINE HCG NEGATIVE (NEG)
--- NOTE | 2021-03-17 06:54 | NUR ---
Assumed care of patient. Patient sleeping restfully in supine position.
--- NOTE | 2021-03-17 06:58 | NUR ---
Packet faxed to [facility]
--- NOTE | 2021-03-17 09:49 | NUR ---
Pt was up to bathroom then returned to her bed. Pt ate 100% of her breakfast.
--- NOTE | 2021-03-17 10:00 | NUR ---
One on one with patient. Pt was alert and oriented at greeting. Pt denies suicidal thoughts at this time. Pt reports she was with friends and talking about suicide. Pt said she was going to jump off the bridge "to prove a point." Pt denies any psychiatric history. [employer] talked with patient about surrounding herself with healthy and friends to tell friends to jump off bridges. Pt states she never wanted to harm herself. Pt is calm throughout assesment.
--- NOTE | 2021-03-17 12:30 | NUR ---
Pt eating lunch, no behaviors to report. [facility] is working on safe DCP for patient.
--- NOTE | 2021-03-17 13:45 | NUR ---
pt mother is here to pick her up. she does have epi pen with her
[2021-03-17 14:58] VITALS: BP 123/80
--- NOTE | 2021-03-17 15:11 | NUR ---
DISCHARGE NOTE: Patient was discharged from unit at 1355. Pt left with her personal belongings. Pt was A&Ox4. Pt denies suicidal and homicidal thoughts, A/VH. Pt states she will present as a walk-in at [facility]. Pt's mother was here to pick her up.
== END 2021-03-17 15:12 ==
LOC: ER 02:51
DX: R45.851 Suicidal ideations (principal); Z20.822 Contact with and (suspected) exposure to COVID-19; J45.909 Unspecified asthma, uncomplicated; F32.9 Major depressive disorder, single episode, unspecified; Z91.010 Allergy to peanuts; Z88.8 Allergy status to other drugs, medicaments and biological substances; Z88.1 Allergy status to other antibiotic agents
CPT/HCPCS: 36415; 80053; 80305; 80320; 81001; 81025; 87635; 99285; C9803

== ENCOUNTER 2021-03-23 12:26 | Emergency (ER) | payer OTHER ==
[~2021-03-23 12:26] MED LIST changes: -ALBU8HFA PO; -BECL7.3A INH; -DICY10CA88 PO; -EPIN0.1521 IM; -EPIN0.3P3 IM; +NO HOME MEDS
== END 2021-03-23 15:11 | disposition left against medical advice (07) ==
LOC: ER 12:27
DX: M79.609 Pain in unspecified limb (principal); Z53.21 Procedure and treatment not carried out due to patient leaving prior to being seen by health care provider

== ENCOUNTER 2021-04-13 09:04 | Emergency (ER) | payer OTHER ==
[~2021-04-13] VITALS: Ht 172.7 cm; Wt 187.0 kg
[2021-04-13] MEDS ORDERED: magnesium 2GM in 50ml NS 50 ML IV ONE (09:25)
[2021-04-13] MEDS ORDERED: methylPREDNISolone sod succ 125mg/2ml vial IV ONE (09:25)
[2021-04-13] MEDS ORDERED: ipratropium/albuterol 3ml nebule NEB ONE (09:25)
[2021-04-13] MEDS ORDERED: ALBU6.7H9 INH (10:02)
[2021-04-13 10:56] VITALS: BP 125/81
== END 2021-04-13 11:32 | disposition home or self-care (01) ==
LOC: ER 09:05
DX: J45.901 Unspecified asthma with (acute) exacerbation (principal); F32.9 Major depressive disorder, single episode, unspecified; Z91.010 Allergy to peanuts; Z88.1 Allergy status to other antibiotic agents; Z88.6 Allergy status to analgesic agent; Z91.018 Allergy to other foods
CPT/HCPCS: 94640; 96365; 96375; 99285; J2930; J3475; 94760

== ENCOUNTER 2021-04-20 12:05 | Emergency (ER) | payer OTHER ==
[~2021-04-20] VITALS: Ht 170.2 cm; Wt 81.8 kg
[~2021-04-20 12:05] MED LIST changes: +ALBU6.7H9 INH
[2021-04-20 12:20] VITALS: BP 128/93
--- NOTE | 2021-04-20 13:34 | NUR ---
john edmonds at bedside.
== END 2021-04-20 13:41 | disposition home or self-care (01) ==
LOC: ER 12:05
DX: M25.562 Pain in left knee (principal); J45.909 Unspecified asthma, uncomplicated; F32.9 Major depressive disorder, single episode, unspecified; Z91.010 Allergy to peanuts; Z91.018 Allergy to other foods; Z88.1 Allergy status to other antibiotic agents; Z88.8 Allergy status to other drugs, medicaments and biological substances; Z88.6 Allergy status to analgesic agent; V03.10XA Pedestrian on foot injured in collision with car, pick-up truck or van in traffic accident, initial encounter; Y93.89 Activity, other specified; Y92.89 Other specified places as the place of occurrence of the external cause; Y99.8 Other external cause status
CPT/HCPCS: 29505; 73564; 99283

== ENCOUNTER 2021-05-05 17:37 | Emergency (ER) | payer OTHER ==
[~2021-05-05] VITALS: Ht 170.2 cm; Wt 79.5 kg
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
[2021-05-05 19:37] VITALS: BP 128/80
== END 2021-05-05 19:38 | disposition home or self-care (01) ==
LOC: ER 17:38
DX: R20.2 Paresthesia of skin (principal); R20.0 Anesthesia of skin; J45.909 Unspecified asthma, uncomplicated; Z79.2 Long term (current) use of antibiotics; Z79.899 Other long term (current) drug therapy; Z91.010 Allergy to peanuts; Z88.1 Allergy status to other antibiotic agents; Z91.040 Latex allergy status
CPT/HCPCS: 99284

== ENCOUNTER 2021-05-13 11:46 | Emergency (ER) | payer OTHER ==
[~2021-05-13] VITALS: Ht 170.2 cm; Wt 103.6 kg
[2021-05-13 13:18] LABS: CLARITY,URINE CLOUDY (Clear); COLOR,URINE YELLOW (Yellow); GLUCOSE, URINE NEGATIVE (Neg); KETONES,URINE NEGATIVE (Neg); LEUKOCYTE ESTERASE ,URINE NEGATIVE (Neg); NITRITES, URINE NEGATIVE (Neg); OCCULT BLOOD,URINE LARGE (Neg); PROTEIN,URINE TRACE mg/dl (Neg); UROBILINOGEN,URINE 0.2 E.U/dL (0.2-1.0)
[2021-05-13 13:25] LABS: UA COLLECTION TYPE CLN CATCH MIDSTREAM
[2021-05-13 13:27] LABS: BACTERIA,URINE FEW /HPF (Neg); RBC,URINE TNTC /HPF (0-2); SQUAMOUS EPITHELIAL CELL,UR MODERATE /LPF (FEW); WBC,URINE 0-4 /HPF (0-4)
[2021-05-13] MEDS ORDERED: CefTRIAXone 1000mg IM Kit (w/lidocaine diluent) IM STA (13:58)
[2021-05-13] MEDS ORDERED: azithromycin 250mg tablet PO ONE ×2 (14:00→14:30)
--- NOTE | 2021-05-13 14:15 | NUR ---
pt stated she started having rlq pain starting yesterday with n/v. pt stated she vomiting bile and is having pain with urination starting yesterday. pt has no other complaints during this assessment
[2021-05-13] MEDS ORDERED: gentamicin 40 MG/1 ML inj IM ONE (14:25)
--- NOTE | 2021-05-13 14:40 | NUR ---
POLICE AT BEDSIDE TALKING WITH PT
--- NOTE | 2021-05-13 15:12 | NUR ---
ADRIEL CALLED FOR APPROVAL OF SART EXAM. [employer] OFFICER MARCY APPROVED SART KIT; CASE #[id number]. MADELAINET RN WEBSITE/BLOG EDITOR NOTIFIED, [facility] CALLED.
[2021-05-13 15:53] LABS: URINE HCG NEGATIVE (NEG)
[2021-05-13 16:10] VITALS: BP 128/68
[2021-05-13] MEDS ORDERED: LEVONORGESTREL 1.5MG tablet 1.5 MG TABLET PO ONE (16:30)
[2021-05-13] MEDS ORDERED: TINIDAZOLE 500 MG TABLET PO ONE (16:30)
--- NOTE | 2021-05-13 19:29 | NUR ---
[facility] advocate Diana at bedside throughout exam, prophalaxis as ordered by md. No injuries noted. Pt verbalizes understanding of dc instructions, kit sent with [employer] per protocol, RADS to mail. Pt declines shower.
== END 2021-05-13 16:13 | disposition home or self-care (01) ==
LOC: ER 11:47
DX: T76.21XA Adult sexual abuse, suspected, initial encounter (principal)
CPT/HCPCS: 36415; 81001; 81025; 87491; 87591; 96372; 99283; J1580

== ENCOUNTER 2021-05-19 10:25 | Emergency (ER) | payer OTHER ==
[~2021-05-19] VITALS: Ht 170.2 cm; Wt 81.8 kg
[2021-05-19 10:28] VITALS: BP 123/63
[2021-05-19] MEDS ORDERED: acetaminophen 325mg tablet PO ONE (13:05)
--- NOTE | 2021-05-19 13:36 | NUR ---
finger splint & lia tape applied to lt hand 5th digit. post splint csm intact. pt states it feels much better now.
== END 2021-05-19 13:39 | disposition home or self-care (01) ==
LOC: ER 10:26
DX: S63.617A Unspecified sprain of left little finger, initial encounter (principal); J45.909 Unspecified asthma, uncomplicated; Z91.041 Radiographic dye allergy status; Z88.1 Allergy status to other antibiotic agents; Z88.8 Allergy status to other drugs, medicaments and biological substances; Z91.010 Allergy to peanuts; Z91.013 Allergy to seafood; Z79.899 Other long term (current) drug therapy; W18.09XA Striking against other object with subsequent fall, initial encounter; Y93.44 Activity, trampolining; Y92.89 Other specified places as the place of occurrence of the external cause; Y99.8 Other external cause status
CPT/HCPCS: 29130; 73140; 99283

== ENCOUNTER 2021-05-20 15:43 | Emergency (ER) | payer OTHER, MEDICAID ==
[~2021-05-20] VITALS: Ht 170.2 cm; Wt 79.5 kg
[2021-05-20 16:13] VITALS: BP 116/62
== END 2021-05-20 17:48 | disposition home or self-care (01) ==
LOC: ER 15:43
DX: S63.616A Unspecified sprain of right little finger, initial encounter (principal); R20.0 Anesthesia of skin; J45.909 Unspecified asthma, uncomplicated; F32.A Depression, unspecified; Z88.1 Allergy status to other antibiotic agents; Z88.8 Allergy status to other drugs, medicaments and biological substances; Z91.010 Allergy to peanuts; Z91.013 Allergy to seafood; Z79.899 Other long term (current) drug therapy; W19.XXXA Unspecified fall, initial encounter; Y93.89 Activity, other specified; Y92.89 Other specified places as the place of occurrence of the external cause; Y99.8 Other external cause status
CPT/HCPCS: 29130; 99283

== ENCOUNTER 2021-06-04 13:06 | Emergency (ER) | payer OTHER, MEDICAID ==
[~2021-06-04] VITALS: Ht 167.6 cm; Wt 84.1 kg
[2021-06-04 13:08] VITALS: BP 131/89
--- NOTE | 2021-06-04 13:25 | NUR ---
provider at bedside.
[2021-06-04] MEDS ORDERED: magnesium 2GM in 50ml NS 50 ML IV ONE (13:35)
[2021-06-04] MEDS ORDERED: LORazepam 2 mg/ml vial IV ONE (13:35)
[2021-06-04] MEDS ORDERED: albuterol 2.5 MG/3 ML nebule CONTNEB PRN (13:35)
[2021-06-04] MEDS ORDERED: normal saline 1000ML IV soln IVB ONE (13:35)
[2021-06-04] MEDS ORDERED: methylPREDNISolone sod succ 125mg/2ml vial IV ONE (13:35)
--- NOTE | 2021-06-04 13:40 | NUR ---
xray at bedside.
--- NOTE | 2021-06-04 14:45 | NUR ---
rt at bedside. pt's breathing tx now complete. pt reports she feels much better but it cold. 02 remains 99% on RA
== END 2021-06-04 15:19 | disposition home or self-care (01) ==
LOC: ER 13:06
DX: J45.901 Unspecified asthma with (acute) exacerbation (principal); Z88.8 Allergy status to other drugs, medicaments and biological substances; Z88.1 Allergy status to other antibiotic agents; Z91.013 Allergy to seafood; Z91.010 Allergy to peanuts; Z91.018 Allergy to other foods; Z91.041 Radiographic dye allergy status; Z88.6 Allergy status to analgesic agent; Z79.899 Other long term (current) drug therapy
CPT/HCPCS: 71045; 94644; 96374; 96375; 99285; J2060; J2930; J3475; J7030; 94640; 94760; A7015

== ENCOUNTER 2021-06-05 12:57 | Emergency (ER) | payer OTHER, MEDICAID ==
[~2021-06-05] VITALS: Ht 170.2 cm; Wt 84.0 kg
[2021-06-05 13:19] VITALS: BP 135/83
--- NOTE | 2021-06-05 14:20 | NUR ---
pt unable to wait for work up to be complete. pt requesting to leave stating that she has an appointment with her developmental therapist and needs to leave as soon as possible.
== END 2021-06-05 14:30 | disposition home or self-care (01) ==
LOC: ER 12:57
DX: R06.02 Shortness of breath (principal); R05.9 Cough, unspecified; R07.89 Other chest pain
CPT/HCPCS: 99281

== ENCOUNTER 2021-06-29 07:45 | Emergency (ER) | payer OTHER, MEDICAID | END 2021-06-29 08:55 | disposition left against medical advice (07) | LOC: ER 07:46 | DX: H53.9 Unspecified visual disturbance (principal); Z53.21 Procedure and treatment not carried out due to patient leaving prior to being seen by health care provider ==

== ENCOUNTER 2021-07-14 10:25 | Emergency (ER) | payer OTHER, MEDICAID ==
[~2021-07-14] VITALS: Ht 170.2 cm; Wt 84.1 kg
[2021-07-14 10:28] VITALS: BP 139/86
--- NOTE | 2021-07-14 10:59 | NUR ---
relieving RN for break, pt is sleeping, easily arouseable, talking full sentences, no resp distress, pt said hives on arms have resolved, throat swelling has decreased,
[2021-07-14] MEDS ORDERED: EPIN0.3P3 IM (11:06)
[2021-07-14] MEDS ORDERED: methylPREDNISolone sod succ 125mg/2ml vial IV ONE (11:10)
[2021-07-14] MEDS ORDERED: famotidine/PF 10 mg/ml inj IV ONE (11:10)
== END 2021-07-14 11:53 | disposition home or self-care (01) ==
LOC: ER 10:25
DX: T78.40XA Allergy, unspecified, initial encounter (principal); R06.02 Shortness of breath; J45.909 Unspecified asthma, uncomplicated; F32.A Depression, unspecified; Z88.1 Allergy status to other antibiotic agents; Z88.8 Allergy status to other drugs, medicaments and biological substances; Z91.010 Allergy to peanuts; Z91.013 Allergy to seafood; Z79.899 Other long term (current) drug therapy; Y92.89 Other specified places as the place of occurrence of the external cause
CPT/HCPCS: 96374; 96375; 99284; J2930; J3490

== ENCOUNTER 2021-07-27 10:53 | Emergency (ER) | payer OTHER, MEDICAID ==
[~2021-07-27] VITALS: Ht 170.2 cm; Wt 84.1 kg
[~2021-07-27 10:53] MED LIST changes: +EPIN0.3P3 IM
[2021-07-27 10:57] VITALS: BP 146/79
[2021-07-27] MEDS ORDERED: BENZ-38 PO (13:06)
== END 2021-07-27 13:39 | disposition home or self-care (01) ==
LOC: ER 10:53
DX: J20.9 Acute bronchitis, unspecified (principal); J45.909 Unspecified asthma, uncomplicated; F32.A Depression, unspecified; Z88.8 Allergy status to other drugs, medicaments and biological substances; Z79.899 Other long term (current) drug therapy; Z88.0 Allergy status to penicillin
CPT/HCPCS: 71045; 87502; 87503; 99284

== ENCOUNTER 2021-08-06 12:48 | Emergency (ER) | payer OTHER, MEDICAID ==
[~2021-08-06 12:48] MED LIST changes: +BENZ-38 PO
== END 2021-08-06 15:37 | disposition left against medical advice (07) ==
LOC: ER 12:48
DX: T14.8XXA Other injury of unspecified body region, initial encounter (principal); Z53.21 Procedure and treatment not carried out due to patient leaving prior to being seen by health care provider; W54.0XXA Bitten by dog, initial encounter; Y93.89 Activity, other specified; Y92.89 Other specified places as the place of occurrence of the external cause; Y99.8 Other external cause status

== ENCOUNTER 2021-08-11 15:04 | Emergency (ER) | payer OTHER, MEDICAID ==
[~2021-08-11] VITALS: Ht 170.2 cm; Wt 84.0 kg
[2021-08-11 17:29] VITALS: BP 115/83
== END 2021-08-11 17:30 | disposition home or self-care (01) ==
LOC: ER 15:05
DX: M25.532 Pain in left wrist (principal); J45.909 Unspecified asthma, uncomplicated; F32.A Depression, unspecified; Z88.1 Allergy status to other antibiotic agents; Z91.010 Allergy to peanuts; Z91.013 Allergy to seafood; Z88.8 Allergy status to other drugs, medicaments and biological substances; Z79.899 Other long term (current) drug therapy
CPT/HCPCS: 73110; 73130; 99284

== ENCOUNTER 2021-08-21 09:51 | Emergency (ER) | payer OTHER, MEDICAID ==
[~2021-08-21] VITALS: Ht 170.2 cm; Wt 103.0 kg
[2021-08-21 12:04] VITALS: BP 122/84
[2021-08-21 12:36] LABS: COLOR,URINE ORANGE (Yellow)
[2021-08-21 12:48] LABS: URINE HCG NEGATIVE (NEG)
[2021-08-21 12:52] LABS: BASOPHILS % (AUTO) 0.4 % (0-1); EOSINOPHILS # (AUTO) 0.1 X10'3 (0-0.9); EOSINOPHILS % (AUTO) 1.5 % (0-6); HEMATOCRIT 40.1 % (35.0-45.0); HEMOGLOBIN 13.2 g/dl (12.0-16.0); LYMPHOCYTES # (AUTO) 2.3 X10'3 (1.1-4.8); LYMPHOCYTES % (AUTO) 31.4 % (21-51); MEAN CORPUSCULAR VOLUME 91.2 FL (78-98); MONOCYTES # (AUTO) 0.5 X10'3 (0-0.9); MONOCYTES % (AUTO) 6.7 % (2-12); NEUTROPHILS # (AUTO) 4.4 X10'3 (1.8-7.7); PLATELET COUNT 379 X10'3 (140-440); RED CELL DISTRIBUTION WIDTH 13.1 % (11.5-14.5); WHITE BLOOD COUNT 7.3 X10'3 (4.5-11.0)
[2021-08-21 12:57] LABS: UA COLLECTION TYPE CLN CATCH MIDSTREAM
[2021-08-21 12:59] LABS: CLARITY,URINE SLIGHTLY CLOUDY (Clear)
[2021-08-21 13:00] LABS: BACTERIA,URINE 3+ /HPF (Neg); RBC,URINE NONE SEEN /HPF (0-2); SQUAMOUS EPITHELIAL CELL,UR MANY /LPF (FEW); WBC,URINE 0-4 /HPF (0-4)
[2021-08-21 13:01] LABS: MUCUS STRANDS NONE SEEN /LPF (Neg)
[2021-08-21 13:03] LABS: ALANINE AMINOTRANSFERASE 29 U/L (12-78); ALBUMIN 3.9 G/DL (3.4-5.0); ALBUMIN/GLOBULIN RATIO 1.1 (1.1-1.5); ALKALINE PHOSPHATASE 69 IU/L (46-116); ANION GAP 7 (8-16); ASPARTATE AMINO TRANSFERASE 18 U/L (10-37); BILIRUBIN,TOTAL 0.5 MG/DL (0.1-1.0); CALCIUM 8.6 MG/DL (8.5-10.1); CHLORIDE 103 MMOL/L (99-107); GLUCOSE 83 MG/DL (70-104); LIPASE 86 U/L (73-393); POTASSIUM 3.2 MMOL/L (3.5-5.1); SODIUM 138 MMOL/L (135-145); TOTAL CARBON DIOXIDE 27.9 MMOL/L (24-32); TOTAL PROTEIN 7.4 G/DL (6.4-8.2)
[2021-08-21 13:12] LABS: BLOOD UREA NITROGEN 4 MG/DL (7-18); BUN/CREATININE RATIO 4.4 (6.6-38.0); eGFR 78 ML/MIN
== END 2021-08-21 14:41 | disposition home or self-care (01) ==
LOC: ER 09:52
DX: R32 Unspecified urinary incontinence (principal); J45.909 Unspecified asthma, uncomplicated; F32.9 Major depressive disorder, single episode, unspecified; Z91.041 Radiographic dye allergy status; Z88.1 Allergy status to other antibiotic agents; Z91.018 Allergy to other foods; Z91.013 Allergy to seafood; Z79.899 Other long term (current) drug therapy
CPT/HCPCS: 36415; 80053; 81001; 81025; 83690; 85025; 99284

== ENCOUNTER 2021-08-25 16:40 | Emergency (ER) | payer OTHER, MEDICAID ==
[~2021-08-25] VITALS: Ht 172.7 cm; Wt 84.1 kg
[2021-08-25 16:47] VITALS: BP 125/84
== END 2021-08-26 00:07 | disposition home or self-care (01) ==
LOC: ER 16:41
DX: R10.9 Unspecified abdominal pain (principal); Z53.21 Procedure and treatment not carried out due to patient leaving prior to being seen by health care provider

== ENCOUNTER 2021-09-14 09:33 | Emergency (ER) | payer OTHER, MEDICAID ==
[~2021-09-14] VITALS: Ht 172.7 cm; Wt 86.4 kg
[~2021-09-14 09:33] MED LIST changes: -BENZ-38 PO; +FLO44IN IH
[2021-09-14 09:41] VITALS: BP 126/82
== END 2021-09-14 10:54 | disposition home or self-care (01) ==
LOC: ER 09:33
DX: R20.2 Paresthesia of skin (principal); J45.909 Unspecified asthma, uncomplicated; Z88.1 Allergy status to other antibiotic agents; Z91.010 Allergy to peanuts; Z91.013 Allergy to seafood; Z91.018 Allergy to other foods; Z91.09 Other allergy status, other than to drugs and biological substances
CPT/HCPCS: 99282

== ENCOUNTER 2021-09-22 10:32 | Emergency (ER) | payer OTHER, MEDICAID ==
[~2021-09-22] VITALS: Ht 167.6 cm; Wt 90.0 kg
[~2021-09-22 10:32] MED LIST changes: +ALBU6.7H14 INH; -ALBU6.7H9 INH
[2021-09-22] MEDS ORDERED: famotidine/PF 10 mg/ml inj IV ONE (10:45)
[2021-09-22] MEDS ORDERED: diphenhydrAMINE 50 mg/ml inj IV ONE (10:45)
[2021-09-22] MEDS ORDERED: methylPREDNISolone sod succ 125mg/2ml vial IV ONE (10:45)
[2021-09-22 10:56] VITALS: BP 113/75
== END 2021-09-22 11:41 | disposition home or self-care (01) ==
LOC: ER 10:33
DX: T78.01XA Anaphylactic reaction due to peanuts, initial encounter (principal); J45.909 Unspecified asthma, uncomplicated; F32.9 Major depressive disorder, single episode, unspecified; Z88.1 Allergy status to other antibiotic agents; Z88.6 Allergy status to analgesic agent; Z79.899 Other long term (current) drug therapy; Z91.013 Allergy to seafood
CPT/HCPCS: 96374; 96375; 99284; J1200; J2930; J3490

== ENCOUNTER 2021-10-14 07:50 | Emergency (ER) | payer OTHER, MEDICAID ==
[~2021-10-14] VITALS: Ht 172.7 cm; Wt 84.1 kg
[~2021-10-14 07:50] MED LIST changes: -ALBU6.7H14 INH; +ALBU6.7H9 INH
[2021-10-14 09:26] VITALS: BP 137/91
== END 2021-10-14 09:27 | disposition home or self-care (01) ==
LOC: ER 07:51
DX: R20.0 Anesthesia of skin (principal); J45.909 Unspecified asthma, uncomplicated; Z88.1 Allergy status to other antibiotic agents; Z91.041 Radiographic dye allergy status; Z88.6 Allergy status to analgesic agent; Z91.010 Allergy to peanuts; Z91.013 Allergy to seafood; Z91.018 Allergy to other foods; W06.XXXA Fall from bed, initial encounter; Y93.89 Activity, other specified; Y92.89 Other specified places as the place of occurrence of the external cause; Y99.8 Other external cause status
CPT/HCPCS: 99284

== ENCOUNTER 2021-10-21 09:36 | Emergency (ER) | payer OTHER, MEDICAID ==
[~2021-10-21] VITALS: Ht 172.7 cm; Wt 81.8 kg
[2021-10-21 10:12] VITALS: BP 120/79
[2021-10-21] MEDS ORDERED: HYDR-3686 PO (11:11)
[2021-10-21] MEDS ORDERED: TRIA15CR61 TOP (11:11)
[2021-10-21] MEDS ORDERED: hydrOXYzine 25 MG tablet PO ONE (11:15)
== END 2021-10-21 11:44 | disposition home or self-care (01) ==
LOC: ER 09:37
DX: L23.2 Allergic contact dermatitis due to cosmetics (principal); J45.909 Unspecified asthma, uncomplicated; F32.A Depression, unspecified; Z88.8 Allergy status to other drugs, medicaments and biological substances; Z88.1 Allergy status to other antibiotic agents; Z88.6 Allergy status to analgesic agent; Z91.013 Allergy to seafood; Z79.899 Other long term (current) drug therapy
CPT/HCPCS: 99283; Q0177

== ENCOUNTER 2021-11-06 13:58 | Emergency (ER) | payer OTHER, MEDICAID ==
[~2021-11-06] VITALS: Ht 172.7 cm; Wt 86.4 kg
[~2021-11-06 13:58] MED LIST changes: +ALBU6.7H14 INH; -ALBU6.7H9 INH; +TRIA15CR61 TOP
[2021-11-06 14:19] VITALS: BP 129/87
[2021-11-06] MEDS ORDERED: acetaminophen 325mg tablet PO ONE (16:20)
== END 2021-11-06 16:42 | disposition home or self-care (01) ==
LOC: ER 13:58
DX: M25.562 Pain in left knee (principal); J45.909 Unspecified asthma, uncomplicated; F32.A Depression, unspecified; Z88.1 Allergy status to other antibiotic agents; Z88.8 Allergy status to other drugs, medicaments and biological substances; Z91.010 Allergy to peanuts; Z91.013 Allergy to seafood; Z79.899 Other long term (current) drug therapy
CPT/HCPCS: 29505; 73564; 99283

== ENCOUNTER 2021-12-03 14:15 | Emergency (ER) | payer OTHER, MEDICAID ==
[~2021-12-03] VITALS: Ht 172.7 cm; Wt 84.1 kg
[~2021-12-03 14:15] MED LIST changes: -TRIA15CR61 TOP
[2021-12-03] MEDS ORDERED: BUDE180A INH (14:30)
[2021-12-03 14:50] VITALS: BP 135/74
== END 2021-12-03 15:05 | disposition home or self-care (01) ==
LOC: ER 14:16
DX: R07.89 Other chest pain (principal); J45.909 Unspecified asthma, uncomplicated; Z88.1 Allergy status to other antibiotic agents; Z88.6 Allergy status to analgesic agent; Z91.041 Radiographic dye allergy status; Z91.013 Allergy to seafood; Z91.018 Allergy to other foods; Z91.010 Allergy to peanuts
CPT/HCPCS: 99283

== ENCOUNTER 2021-12-29 12:28 | Emergency (ER) | payer OTHER, MEDICAID ==
[~2021-12-29] VITALS: Ht 172.7 cm; Wt 84.0 kg
[~2021-12-29 12:28] MED LIST changes: +BUDE180A INH
[2021-12-29 12:59] VITALS: BP 148/105
== END 2021-12-29 14:05 | disposition home or self-care (01) ==
LOC: ER 12:29
DX: S63.501A Unspecified sprain of right wrist, initial encounter (principal); J45.909 Unspecified asthma, uncomplicated; Z88.1 Allergy status to other antibiotic agents; Z91.041 Radiographic dye allergy status; Z88.6 Allergy status to analgesic agent; Z91.013 Allergy to seafood; W21.02XA Struck by soccer ball, initial encounter; Y93.66 Activity, soccer; Y92.89 Other specified places as the place of occurrence of the external cause; Y99.8 Other external cause status
CPT/HCPCS: 73110; 73130; 99284

== ENCOUNTER 2022-01-21 10:27 | Emergency (ER) | payer OTHER, MEDICAID ==
[~2022-01-21] VITALS: Ht 172.7 cm; Wt 81.8 kg
[2022-01-21] MEDS ORDERED: ipratropium/albuterol 3ml nebule NEB ONE (11:30)
[2022-01-21 12:54] VITALS: BP 107/72
== END 2022-01-21 12:58 | disposition home or self-care (01) ==
LOC: ER 10:27
DX: J45.901 Unspecified asthma with (acute) exacerbation (principal); F32.A Depression, unspecified; Z88.1 Allergy status to other antibiotic agents; Z88.8 Allergy status to other drugs, medicaments and biological substances; Z91.010 Allergy to peanuts; Z91.013 Allergy to seafood; Z79.899 Other long term (current) drug therapy
CPT/HCPCS: 94640; 94760; 99283

== ENCOUNTER 2022-02-16 13:35 | Emergency (ER) | payer OTHER, MEDICAID ==
[~2022-02-16] VITALS: Ht 172.7 cm; Wt 106.8 kg
[2022-02-16 13:46] VITALS: BP 127/85
[2022-02-16] MEDS ORDERED: HYDROcodone/acetaminophen 10/325mg tab PO ONE (14:55)
== END 2022-02-16 16:22 | disposition home or self-care (01) ==
LOC: ER 13:36
DX: S50.11XA Contusion of right forearm, initial encounter (principal); M79.631 Pain in right forearm; J45.909 Unspecified asthma, uncomplicated; F32.A Depression, unspecified; Z88.1 Allergy status to other antibiotic agents; Z88.8 Allergy status to other drugs, medicaments and biological substances; Z91.010 Allergy to peanuts; Z91.013 Allergy to seafood; Z79.899 Other long term (current) drug therapy; X58.XXXA Exposure to other specified factors, initial encounter; Y93.89 Activity, other specified; Y92.89 Other specified places as the place of occurrence of the external cause; Y99.8 Other external cause status
CPT/HCPCS: 73090; 73100; 99284

== ENCOUNTER 2022-02-24 12:58 | Emergency (ER) | payer OTHER, MEDICAID ==
[~2022-02-24] VITALS: Ht 172.7 cm; Wt 85.0 kg
[2022-02-24 13:08] VITALS: BP 128/79
[2022-02-24] MEDS ORDERED: diphenhydrAMINE 50 mg/ml inj IV ONE (13:10)
[2022-02-24] MEDS ORDERED: normal saline 1000ML IV soln IVB ONE (13:10)
[2022-02-24] MEDS ORDERED: EPIN0.3P3 IM (13:11)
[2022-02-24] MEDS ORDERED: PRED20TA PO (13:11)
[2022-02-24] MEDS ORDERED: methylPREDNISolone sod succ 125mg/2ml vial IV ONE (13:17)
[2022-02-24] MEDS ORDERED: dexamethasone sod phosphate 10mg/ml inj IV STA (13:18)
[2022-02-24] MEDS ORDERED: dexamethasone sod phosphate 10mg/ml inj IM STA (13:50)
== END 2022-02-24 14:21 | disposition home or self-care (01) ==
LOC: ER 12:58
DX: T78.1XXA Other adverse food reactions, not elsewhere classified, initial encounter (principal); T78.49XA Other allergy, initial encounter; R06.02 Shortness of breath; J45.909 Unspecified asthma, uncomplicated; Z88.1 Allergy status to other antibiotic agents; Z91.041 Radiographic dye allergy status; Z88.8 Allergy status to other drugs, medicaments and biological substances; Z91.013 Allergy to seafood; Z88.6 Allergy status to analgesic agent; X58.XXXA Exposure to other specified factors, initial encounter
CPT/HCPCS: 96372; 99283; J1100

== ENCOUNTER 2022-03-02 08:25 | Emergency (ER) | payer OTHER, MEDICAID ==
[~2022-03-02] VITALS: Ht 172.7 cm; Wt 90.9 kg
[~2022-03-02 08:25] MED LIST changes: +PRED20TA PO
[2022-03-02 08:37] VITALS: BP 132/86
== END 2022-03-02 11:35 | disposition left against medical advice (07) ==
LOC: ER 08:25
DX: R51.9 Headache, unspecified (principal); Z53.21 Procedure and treatment not carried out due to patient leaving prior to being seen by health care provider
CPT/HCPCS: 93005

== ENCOUNTER 2022-03-19 10:58 | Emergency (ER) | payer OTHER, MEDICAID ==
[~2022-03-19] VITALS: Ht 172.7 cm; Wt 86.0 kg
[2022-03-19 11:12] VITALS: BP 112/70
== END 2022-03-19 12:54 | disposition home or self-care (01) ==
LOC: ER 10:59
DX: S63.617A Unspecified sprain of left little finger, initial encounter (principal); Z91.041 Radiographic dye allergy status; Z88.1 Allergy status to other antibiotic agents; Z88.6 Allergy status to analgesic agent; Z91.010 Allergy to peanuts; Z91.013 Allergy to seafood; W23.0XXA Caught, crushed, jammed, or pinched between moving objects, initial encounter; J45.909 Unspecified asthma, uncomplicated; Y93.66 Activity, soccer; Y92.89 Other specified places as the place of occurrence of the external cause; Y99.8 Other external cause status
CPT/HCPCS: 73130; 99284

== ENCOUNTER 2022-04-08 10:02 | Emergency (ER) | payer OTHER, MEDICAID ==
[~2022-04-08] VITALS: Ht 172.7 cm; Wt 81.8 kg
[~2022-04-08 10:02] MED LIST changes: -PRED20TA PO
[2022-04-08 10:08] VITALS: BP 123/86
[2022-04-08] MEDS ORDERED: proparacaine 0.5% ophthalmic drops 15ml EACHEYE ONE (10:10)
[2022-04-08] MEDS ORDERED: TOBR5DRO2 RIGHTEYE (10:29)
== END 2022-04-08 10:40 | disposition home or self-care (01) ==
LOC: ER 10:03
DX: H57.11 Ocular pain, right eye (principal); Z77.098 Contact with and (suspected) exposure to other hazardous, chiefly nonmedicinal, chemicals; F32.A Depression, unspecified; J45.909 Unspecified asthma, uncomplicated; Z87.81 Personal history of (healed) traumatic fracture; Z88.0 Allergy status to penicillin; Z88.5 Allergy status to narcotic agent; Z88.6 Allergy status to analgesic agent; Z91.010 Allergy to peanuts; Z91.013 Allergy to seafood; Z79.899 Other long term (current) drug therapy
CPT/HCPCS: 99283

== ENCOUNTER 2022-04-15 12:04 | Emergency (ER) | payer OTHER, MEDICAID ==
[~2022-04-15] VITALS: Ht 172.7 cm; Wt 100.0 kg
[~2022-04-15 12:04] MED LIST changes: +TOBR5DRO2 RIGHTEYE
[2022-04-15 14:19] VITALS: BP 136/94
[2022-04-15] MEDS ORDERED: NAPR-996 PO (16:46)
== END 2022-04-15 17:06 | disposition home or self-care (01) ==
LOC: ER 12:04
DX: M79.672 Pain in left foot (principal); J45.909 Unspecified asthma, uncomplicated; Z91.041 Radiographic dye allergy status; Z88.1 Allergy status to other antibiotic agents; Z88.6 Allergy status to analgesic agent; Z88.8 Allergy status to other drugs, medicaments and biological substances; Z91.010 Allergy to peanuts; Z91.013 Allergy to seafood; Z91.018 Allergy to other foods
CPT/HCPCS: 73630; 99283

== ENCOUNTER 2022-04-17 20:05 | Emergency (ER) | payer OTHER, MEDICAID ==
[~2022-04-17] VITALS: Ht 172.7 cm; Wt 84.1 kg
[~2022-04-17 20:05] MED LIST changes: +NAPR-996 PO
[2022-04-17 20:24] VITALS: BP 151/81
== END 2022-04-18 03:08 | disposition left against medical advice (07) ==
LOC: ER 20:06
DX: R21 Rash and other nonspecific skin eruption (principal); Z53.21 Procedure and treatment not carried out due to patient leaving prior to being seen by health care provider
CPT/HCPCS: 99281

== ENCOUNTER 2022-04-21 21:02 | Emergency (ER) | payer OTHER, MEDICAID ==
[~2022-04-21] VITALS: Ht 172.7 cm; Wt 81.8 kg
[2022-04-21 21:30] VITALS: BP 112/67
== END 2022-04-22 01:27 | disposition left against medical advice (07) ==
LOC: ER 21:03
DX: H57.12 Ocular pain, left eye (principal); Z53.21 Procedure and treatment not carried out due to patient leaving prior to being seen by health care provider
CPT/HCPCS: 99281

== ENCOUNTER 2022-04-23 12:22 | Emergency (ER) | payer OTHER, MEDICAID ==
[~2022-04-23] VITALS: Ht 172.7 cm; Wt 81.8 kg
[2022-04-23 12:46] VITALS: BP 134/93
== END 2022-04-23 15:15 | disposition home or self-care (01) ==
LOC: ER 12:23
DX: M79.672 Pain in left foot (principal); J45.909 Unspecified asthma, uncomplicated; F32.A Depression, unspecified; Z87.81 Personal history of (healed) traumatic fracture; Z88.0 Allergy status to penicillin; Z88.5 Allergy status to narcotic agent; Z88.6 Allergy status to analgesic agent; Z79.899 Other long term (current) drug therapy; Z91.040 Latex allergy status
CPT/HCPCS: 73630; 99283

== ENCOUNTER 2022-04-29 10:56 | Emergency (ER) | payer MEDICAID, OTHER ==
[~2022-04-29] VITALS: Ht 172.7 cm; Wt 84.1 kg
[2022-04-29 10:59] VITALS: BP 131/95
== END 2022-04-29 12:31 | disposition home or self-care (01) ==
LOC: ER 10:57
DX: S63.651A Sprain of metacarpophalangeal joint of left index finger, initial encounter (principal); F32.A Depression, unspecified; J45.909 Unspecified asthma, uncomplicated; Z88.8 Allergy status to other drugs, medicaments and biological substances; Z88.1 Allergy status to other antibiotic agents; Z88.6 Allergy status to analgesic agent; Z79.899 Other long term (current) drug therapy; Z91.010 Allergy to peanuts; Z91.013 Allergy to seafood; Y93.67 Activity, basketball; Y92.89 Other specified places as the place of occurrence of the external cause; Y99.8 Other external cause status
CPT/HCPCS: 73140; 99284

== ENCOUNTER 2022-05-14 11:58 | Emergency (ER) | payer OTHER, MEDICAID ==
[~2022-05-14] VITALS: Ht 172.7 cm; Wt 84.1 kg
[2022-05-14 15:25] VITALS: BP 124/86
== END 2022-05-14 15:27 | disposition home or self-care (01) ==
LOC: ER 11:59
DX: T78.40XA Allergy, unspecified, initial encounter (principal); F32.A Depression, unspecified; J45.909 Unspecified asthma, uncomplicated; Z88.8 Allergy status to other drugs, medicaments and biological substances; Z88.6 Allergy status to analgesic agent; Z91.010 Allergy to peanuts; Z91.013 Allergy to seafood; Z79.899 Other long term (current) drug therapy
CPT/HCPCS: 99281

== ENCOUNTER 2022-05-23 19:55 | Emergency (ER) | payer MEDICAID, OTHER ==
[~2022-05-23] VITALS: Ht 167.6 cm; Wt 103.6 kg
[2022-05-23 20:12] VITALS: BP 145/95
[2022-05-23 20:41] LABS: CLARITY,URINE CLOUDY (Clear); COLOR,URINE YELLOW (Yellow); GLUCOSE, URINE NEGATIVE (Neg); KETONES,URINE NEGATIVE (Neg); LEUKOCYTE ESTERASE ,URINE NEGATIVE (Neg); NITRITES, URINE NEGATIVE (Neg); OCCULT BLOOD,URINE NEGATIVE (Neg); PH,URINE 5.5 (4.8-8.0); PROTEIN,URINE NEGATIVE (Neg); UROBILINOGEN,URINE 0.2 E.U/dL (0.2-1.0)
[2022-05-23 20:52] LABS: URINE HCG NEGATIVE (NEG)
[2022-05-23 20:54] LABS: ALANINE AMINOTRANSFERASE 23 U/L (12-78); ALBUMIN 3.9 G/DL (3.4-5.0); ALBUMIN/GLOBULIN RATIO 1.1 (1.1-1.5); ALKALINE PHOSPHATASE 83 IU/L (46-116); ANION GAP 10 (8-16); ASPARTATE AMINO TRANSFERASE 19 U/L (10-37); BILIRUBIN,TOTAL 0.3 MG/DL (0.1-1.0); BLOOD UREA NITROGEN 9 MG/DL (7-18); BUN/CREATININE RATIO 9.4 (10.0-20.0); CALCIUM 9.1 MG/DL (8.5-10.1); CHLORIDE 103 MMOL/L (99-107); CREATININE 0.96 MG/DL (0.40-0.90); GLUCOSE 85 MG/DL (70-104); MAGNESIUM 2.3 MG/DL (1.5-2.4); PHOSPHORUS 3.5 MG/DL (2.3-4.5); POTASSIUM 3.6 MMOL/L (3.5-5.1); SODIUM 142 MMOL/L (135-145); TOTAL CARBON DIOXIDE 28.9 MMOL/L (24-32); TOTAL PROTEIN 7.5 G/DL (6.4-8.2); eGFR 72 ML/MIN
[2022-05-23 20:56] LABS: UA COLLECTION TYPE CLN CATCH MIDSTREAM
[2022-05-23 20:59] LABS: BACTERIA,URINE 3+ /HPF (Neg); MUCUS STRANDS MANY /LPF (Neg); RBC,URINE 0-2 /HPF (0-2); SQUAMOUS EPITHELIAL CELL,UR MANY /LPF (FEW); WBC,URINE 0-4 /HPF (0-4)
[2022-05-23 21:05] LABS: BASOPHILS % (AUTO) 0.5 % (0-1); EOSINOPHILS # (AUTO) 0.2 X10'3 (0-0.9); EOSINOPHILS % (AUTO) 2.2 % (0-6); HEMOGLOBIN 13.4 g/dl (12.0-16.0); LYMPHOCYTES % (AUTO) 33.5 % (21-51); MEAN CORPUSCULAR HEMOGLOBIN 31.1 PG (27.0-31.0); MEAN CORPUSCULAR HGB CONC 34.4 g/dL (33.0-36.5); MEAN CORPUSCULAR VOLUME 90.4 FL (78-98); MEAN PLATELET VOLUME 7.8 FL (7.4-10.4); MONOCYTES # (AUTO) 0.7 X10'3 (0-0.9); NEUTROPHILS % (AUTO) 55.8 % (42-75); PLATELET COUNT 384 X10'3 (140-440); RED BLOOD COUNT 4.31 X10'6 (4.20-5.60)
== END 2022-05-24 02:39 | disposition left against medical advice (07) ==
LOC: ER 19:56
DX: R55 Syncope and collapse (principal); E86.0 Dehydration; R63.4 Abnormal weight loss
CPT/HCPCS: 36415; 80053; 81001; 81025; 82948; 83735; 84100; 85025; 93005; 99284

== ENCOUNTER 2022-06-03 04:43 | Emergency (ER) | payer MEDICAID ==
[~2022-06-03] VITALS: Ht 172.7 cm; Wt 81.8 kg
[2022-06-03 05:16] VITALS: BP 133/82
[2022-06-03 06:10] LABS: URINE HCG NEGATIVE (NEG)
[2022-06-03 06:12] LABS: CLARITY,URINE CLOUDY (Clear); COLOR,URINE YELLOW (Yellow); GLUCOSE, URINE NEGATIVE (Neg); KETONES,URINE NEGATIVE (Neg); LEUKOCYTE ESTERASE ,URINE NEGATIVE (Neg); NITRITES, URINE NEGATIVE (Neg); OCCULT BLOOD,URINE TRACE-INTACT (Neg); PROTEIN,URINE NEGATIVE (Neg); UROBILINOGEN,URINE 0.2 E.U/dL (0.2-1.0)
[2022-06-03 06:19] LABS: UA COLLECTION TYPE CLN CATCH MIDSTREAM
[2022-06-03 06:20] LABS: SQUAMOUS EPITHELIAL CELL,UR MANY /LPF (FEW)
[2022-06-03 06:21] LABS: BACTERIA,URINE 2+ /HPF (Neg); MUCUS STRANDS NONE SEEN /LPF (Neg); WBC,URINE 0-4 /HPF (0-4)
== END 2022-06-03 07:01 | disposition left against medical advice (07) ==
LOC: ER 04:43
DX: R10.9 Unspecified abdominal pain (principal); Z53.21 Procedure and treatment not carried out due to patient leaving prior to being seen by health care provider
CPT/HCPCS: 81001; 81025; 99281

== ENCOUNTER 2022-06-07 10:01 | Emergency (ER) | payer MEDICAID ==
[~2022-06-07] VITALS: Ht 172.7 cm; Wt 81.8 kg
[2022-06-07 10:05] VITALS: BP 133/83
[2022-06-07] MEDS ORDERED: dexamethasone sod phosphate 10mg/ml inj IM STA (10:16)
[2022-06-07] MEDS ORDERED: albuterol 2.5 MG/3 ML nebule NEB ONE (10:20)
[2022-06-07] MEDS ORDERED: famotidine 20mg tablet PO ONE (10:20)
[2022-06-07 11:26] LABS: URINE HCG NEGATIVE (NEG)
[2022-06-07] MEDS ORDERED: PRED20TA PO (12:14)
== END 2022-06-07 14:58 | disposition home or self-care (01) ==
LOC: ER 10:02
DX: T78.40XA Allergy, unspecified, initial encounter (principal); J45.909 Unspecified asthma, uncomplicated; F32.A Depression, unspecified; Z87.81 Personal history of (healed) traumatic fracture; Z88.1 Allergy status to other antibiotic agents; Z88.8 Allergy status to other drugs, medicaments and biological substances; Z88.6 Allergy status to analgesic agent; Z79.899 Other long term (current) drug therapy; Z91.010 Allergy to peanuts; Z91.013 Allergy to seafood; Z91.018 Allergy to other foods
CPT/HCPCS: 71045; 81025; 94640; 96372; 99284; J1100; 94760

== ENCOUNTER 2022-06-11 10:58 | Emergency (ER) | payer MEDICAID ==
[~2022-06-11] VITALS: Ht 172.7 cm; Wt 81.8 kg
[~2022-06-11 10:58] MED LIST changes: +PRED20TA PO
[2022-06-11 11:30] VITALS: BP 112/94
--- NOTE | 2022-06-11 11:39 | NUR ---
Pt in FTB. Pt c/o L foot pain. Pt states she was running through the house and hit her foot on the wall. Pt c/o 7/10 constant stabbing pain. Pt educated to POC. Pt in agreement. Pending providers eval and treatment.
[2022-06-11] MEDS ORDERED: acetaminophen 325mg tablet PO ONE (12:05)
== END 2022-06-11 12:17 | disposition home or self-care (01) ==
LOC: ER 10:59
DX: S90.112A Contusion of left great toe without damage to nail, initial encounter (principal); F32.A Depression, unspecified; J45.909 Unspecified asthma, uncomplicated; Z88.8 Allergy status to other drugs, medicaments and biological substances; Z88.1 Allergy status to other antibiotic agents; Z88.5 Allergy status to narcotic agent; Z88.6 Allergy status to analgesic agent; Z79.899 Other long term (current) drug therapy; Z91.013 Allergy to seafood; X58.XXXA Exposure to other specified factors, initial encounter; Y93.89 Activity, other specified; Y92.89 Other specified places as the place of occurrence of the external cause; Y99.8 Other external cause status
CPT/HCPCS: 73630; 99283

== ENCOUNTER 2022-06-22 12:11 | Emergency (ER) | payer MEDICAID ==
[~2022-06-22] VITALS: Ht 172.7 cm; Wt 81.8 kg
[~2022-06-22 12:11] MED LIST changes: -PRED20TA PO
[2022-06-22 12:18] VITALS: BP 133/89
[2022-06-22 12:26] LABS: BASOPHILS # (AUTO) 0.1 X10'3 (0-0.2); BASOPHILS % (AUTO) 0.7 % (0-1); EOSINOPHILS # (AUTO) 0.3 X10'3 (0-0.9); EOSINOPHILS % (AUTO) 3.3 % (0-6); HEMATOCRIT 41.8 % (35.0-45.0); LYMPHOCYTES # (AUTO) 2.6 X10'3 (1.1-4.8); LYMPHOCYTES % (AUTO) 28.4 % (21-51); MEAN CORPUSCULAR HEMOGLOBIN 30.5 PG (27.0-31.0); MEAN CORPUSCULAR HGB CONC 33.4 g/dL (33.0-36.5); MEAN CORPUSCULAR VOLUME 91.3 FL (78-98); MEAN PLATELET VOLUME 7.6 FL (7.4-10.4); MONOCYTES # (AUTO) 0.5 X10'3 (0-0.9); MONOCYTES % (AUTO) 5.9 % (2-12); NEUTROPHILS # (AUTO) 5.7 X10'3 (1.8-7.7); NEUTROPHILS % (AUTO) 61.7 % (42-75); PLATELET COUNT 430 X10'3 (140-440); RED BLOOD COUNT 4.58 X10'6 (4.20-5.60); RED CELL DISTRIBUTION WIDTH 12.7 % (11.5-14.5); WHITE BLOOD COUNT 9.2 X10'3 (4.5-11.0)
[2022-06-22 12:46] LABS: ALANINE AMINOTRANSFERASE 23 U/L (12-78); ALBUMIN 4.2 G/DL (3.4-5.0); ALBUMIN/GLOBULIN RATIO 1.1 (1.1-1.5); ALKALINE PHOSPHATASE 88 IU/L (46-116); ANION GAP 11 (8-16); ASPARTATE AMINO TRANSFERASE 14 U/L (10-37); BILIRUBIN,TOTAL 0.4 MG/DL (0.1-1.0); BLOOD UREA NITROGEN 5 MG/DL (7-18); BUN/CREATININE RATIO 4.9 (10.0-20.0); CALCIUM 9.5 MG/DL (8.5-10.1); CHLORIDE 102 MMOL/L (99-107); CREATININE 1.03 MG/DL (0.40-0.90); GLUCOSE 108 MG/DL (70-104); POTASSIUM 3.8 MMOL/L (3.5-5.1); SODIUM 142 MMOL/L (135-145); TOTAL CARBON DIOXIDE 28.6 MMOL/L (24-32); TOTAL PROTEIN 8.1 G/DL (6.4-8.2); eGFR 66 ML/MIN
== END 2022-06-22 14:52 | disposition left against medical advice (07) ==
LOC: ER 12:12
DX: R07.89 Other chest pain (principal); Z53.21 Procedure and treatment not carried out due to patient leaving prior to being seen by health care provider
CPT/HCPCS: 36415; 71045; 80053; 83735; 83880; 84484; 85025; 93005; 99281

== ENCOUNTER 2022-07-03 12:26 | Emergency (ER) | payer MEDICAID ==
[~2022-07-03] VITALS: Ht 172.7 cm; Wt 81.0 kg
[2022-07-03 12:29] VITALS: BP 137/85
== END 2022-07-03 14:59 | disposition home or self-care (01) ==
LOC: ER 12:27
DX: S92.902A Unspecified fracture of left foot, initial encounter for closed fracture (principal); J45.909 Unspecified asthma, uncomplicated; Z91.041 Radiographic dye allergy status; Z88.1 Allergy status to other antibiotic agents; Z88.8 Allergy status to other drugs, medicaments and biological substances; X58.XXXA Exposure to other specified factors, initial encounter; Y93.89 Activity, other specified; Y92.89 Other specified places as the place of occurrence of the external cause; Y99.8 Other external cause status
CPT/HCPCS: 73630; 99283

== ENCOUNTER 2022-07-06 14:29 | Emergency (ER) | payer MEDICAID ==
[~2022-07-06] VITALS: Ht 172.7 cm; Wt 81.8 kg
[2022-07-06 14:43] VITALS: BP 147/89
[2022-07-06] MEDS ORDERED: albuterol 2.5 MG/3 ML nebule NEB ONE (16:15)
--- NOTE | 2022-07-06 16:22 | NUR ---
PAGED RT FOR NEB
== END 2022-07-06 16:56 | disposition home or self-care (01) ==
LOC: ER 14:29
DX: J45.901 Unspecified asthma with (acute) exacerbation (principal); J45.909 Unspecified asthma, uncomplicated; Z91.041 Radiographic dye allergy status; Z88.1 Allergy status to other antibiotic agents
CPT/HCPCS: 71045; 94640; 94760; 99283

== ENCOUNTER 2022-07-10 12:10 | Emergency (ER) | payer MEDICAID ==
[~2022-07-10] VITALS: Ht 172.7 cm; Wt 81.8 kg
[2022-07-10 12:31] LABS: BASOPHILS % (AUTO) 0.5 % (0-1); EOSINOPHILS # (AUTO) 0.1 X10'3 (0-0.9); EOSINOPHILS % (AUTO) 1.1 % (0-6); HEMATOCRIT 39.2 % (35.0-45.0); HEMOGLOBIN 13.4 g/dl (12.0-16.0); LYMPHOCYTES # (AUTO) 1.8 X10'3 (1.1-4.8); LYMPHOCYTES % (AUTO) 26.6 % (21-51); MEAN CORPUSCULAR HEMOGLOBIN 30.9 PG (27.0-31.0); MEAN CORPUSCULAR HGB CONC 34.2 g/dL (33.0-36.5); MEAN CORPUSCULAR VOLUME 90.4 FL (78-98); MEAN PLATELET VOLUME 7.8 FL (7.4-10.4); MONOCYTES # (AUTO) 0.5 X10'3 (0-0.9); MONOCYTES % (AUTO) 6.9 % (2-12); NEUTROPHILS # (AUTO) 4.4 X10'3 (1.8-7.7); NEUTROPHILS % (AUTO) 64.9 % (42-75); PLATELET COUNT 414 X10'3 (140-440); RED BLOOD COUNT 4.34 X10'6 (4.20-5.60); RED CELL DISTRIBUTION WIDTH 12.8 % (11.5-14.5); WHITE BLOOD COUNT 6.8 X10'3 (4.5-11.0)
[2022-07-10 13:01] LABS: ALANINE AMINOTRANSFERASE 16 U/L (12-78); ALBUMIN 3.8 G/DL (3.4-5.0); ALBUMIN/GLOBULIN RATIO 1.1 (1.1-1.5); ALKALINE PHOSPHATASE 93 IU/L (46-116); ANION GAP 6 (8-16); ASPARTATE AMINO TRANSFERASE 11 U/L (10-37); BILIRUBIN,TOTAL 0.3 MG/DL (0.1-1.0); BLOOD UREA NITROGEN 4 MG/DL (7-18); BUN/CREATININE RATIO 4.5 (10.0-20.0); CALCIUM 9.2 MG/DL (8.5-10.1); CHLORIDE 105 MMOL/L (99-107); CREATININE 0.88 MG/DL (0.40-0.90); GLUCOSE 86 MG/DL (70-104); MAGNESIUM 2.1 MG/DL (1.5-2.4); POTASSIUM 3.7 MMOL/L (3.5-5.1); SODIUM 139 MMOL/L (135-145); TOTAL CARBON DIOXIDE 27.7 MMOL/L (24-32); TOTAL PROTEIN 7.3 G/DL (6.4-8.2); eGFR 80 ML/MIN
[2022-07-10 15:08] VITALS: BP 123/67
== END 2022-07-10 15:10 | disposition home or self-care (01) ==
LOC: ER 12:11
DX: R07.89 Other chest pain (principal); J45.909 Unspecified asthma, uncomplicated; Z87.891 Personal history of nicotine dependence; Z91.041 Radiographic dye allergy status; Z88.5 Allergy status to narcotic agent; Z88.8 Allergy status to other drugs, medicaments and biological substances; Z91.010 Allergy to peanuts; Z91.013 Allergy to seafood; Z91.048 Other nonmedicinal substance allergy status; Z79.899 Other long term (current) drug therapy; Z88.1 Allergy status to other antibiotic agents
CPT/HCPCS: 36415; 71045; 80053; 83735; 83880; 84484; 85025; 93005; 99285

== ENCOUNTER 2022-07-21 13:10 | Emergency (ER) | payer MEDICAID ==
[~2022-07-21] VITALS: Ht 172.7 cm; Wt 100.0 kg
[2022-07-21 13:12] VITALS: BP 171/95
== END 2022-07-21 13:52 | disposition home or self-care (01) ==
LOC: ER 13:11
DX: R20.0 Anesthesia of skin (principal); J45.909 Unspecified asthma, uncomplicated; Z87.81 Personal history of (healed) traumatic fracture; Z88.8 Allergy status to other drugs, medicaments and biological substances; Z88.1 Allergy status to other antibiotic agents; Z79.899 Other long term (current) drug therapy; Z88.6 Allergy status to analgesic agent; Z91.010 Allergy to peanuts
CPT/HCPCS: 99281

== ENCOUNTER 2022-07-23 11:11 | Emergency (ER) | payer MEDICAID ==
[~2022-07-23] VITALS: Ht 172.7 cm; Wt 102.6 kg
[2022-07-23 11:14] VITALS: BP 138/97
== END 2022-07-23 12:06 | disposition home or self-care (01) ==
LOC: ER 11:11
DX: R20.0 Anesthesia of skin (principal); J45.909 Unspecified asthma, uncomplicated; F32.A Depression, unspecified; Z87.81 Personal history of (healed) traumatic fracture; Z88.8 Allergy status to other drugs, medicaments and biological substances; Z88.1 Allergy status to other antibiotic agents; Z88.6 Allergy status to analgesic agent; Z91.010 Allergy to peanuts; Z91.018 Allergy to other foods
CPT/HCPCS: 99281

== ENCOUNTER 2022-07-30 12:08 | Emergency (ER) | payer MEDICAID ==
[~2022-07-30] VITALS: Ht 172.7 cm; Wt 100.0 kg
[2022-07-30 12:18] VITALS: BP 120/92
[2022-07-30] MEDS ORDERED: METH4TAB81 PO (13:54)
[2022-07-30] MEDS ORDERED: ALBU8HFA PO (13:54)
== END 2022-07-30 14:00 | disposition home or self-care (01) ==
LOC: ER 12:08
DX: J45.901 Unspecified asthma with (acute) exacerbation (principal); F32.A Depression, unspecified; Z87.81 Personal history of (healed) traumatic fracture; Z79.899 Other long term (current) drug therapy; Z88.8 Allergy status to other drugs, medicaments and biological substances; Z88.1 Allergy status to other antibiotic agents; Z88.6 Allergy status to analgesic agent; Z91.010 Allergy to peanuts
CPT/HCPCS: 99284

== ENCOUNTER 2022-08-09 09:51 | Emergency (ER) | payer BC, MEDICAID ==
[~2022-08-09] VITALS: Ht 172.7 cm; Wt 77.3 kg
[~2022-08-09 09:51] MED LIST changes: +ALBU8HFA PO; +METH4TAB81 PO
[2022-08-09 10:04] VITALS: BP 161/86
[2022-08-09] MEDS ORDERED: acetaminophen 325mg tablet PO ONE (10:25)
[2022-08-09 10:50] LABS: URINE HCG NEGATIVE (NEG)
[2022-08-09] MEDS ORDERED: CYCL-1 PO (11:18)
== END 2022-08-09 11:28 | disposition home or self-care (01) ==
LOC: ER 09:51
DX: S13.9XXA Sprain of joints and ligaments of unspecified parts of neck, initial encounter (principal); J45.909 Unspecified asthma, uncomplicated; F32.A Depression, unspecified; Z87.81 Personal history of (healed) traumatic fracture; Z88.1 Allergy status to other antibiotic agents; Z88.8 Allergy status to other drugs, medicaments and biological substances; Z91.010 Allergy to peanuts; Z91.013 Allergy to seafood; Z91.018 Allergy to other foods; Z79.899 Other long term (current) drug therapy; Z79.1 Long term (current) use of non-steroidal anti-inflammatories (NSAID); Z79.2 Long term (current) use of antibiotics; V00.131A Fall from skateboard, initial encounter; Y93.89 Activity, other specified; Y92.89 Other specified places as the place of occurrence of the external cause; Y99.8 Other external cause status
CPT/HCPCS: 72125; 81025; 99284

== ENCOUNTER 2022-08-19 11:15 | Emergency (ER) | payer MEDICAID ==
[~2022-08-19] VITALS: Ht 172.7 cm; Wt 77.3 kg
[~2022-08-19 11:15] MED LIST changes: +CYCL-1 PO
[2022-08-19 11:18] VITALS: BP 150/87
== END 2022-08-19 15:51 | disposition left against medical advice (07) ==
LOC: ER 11:15
DX: M25.562 Pain in left knee (principal); Z53.21 Procedure and treatment not carried out due to patient leaving prior to being seen by health care provider
CPT/HCPCS: 73564; 99281

== ENCOUNTER 2022-08-26 09:10 | Emergency (ER) | payer MEDICAID ==
[~2022-08-26] VITALS: Ht 172.7 cm; Wt 72.7 kg
[2022-08-26 09:15] VITALS: BP 130/76
== END 2022-08-26 11:43 | disposition home or self-care (01) ==
LOC: ER 09:11
DX: M25.562 Pain in left knee (principal); F31.9 Bipolar disorder, unspecified; J45.909 Unspecified asthma, uncomplicated; Z87.81 Personal history of (healed) traumatic fracture; F32.A Depression, unspecified; Z88.8 Allergy status to other drugs, medicaments and biological substances; Z88.1 Allergy status to other antibiotic agents; Z88.5 Allergy status to narcotic agent; Z91.010 Allergy to peanuts
CPT/HCPCS: 29505; 99283

== ENCOUNTER 2022-08-30 10:47 | Emergency (ER) | payer MEDICAID ==
[~2022-08-30] VITALS: Ht 172.7 cm; Wt 72.7 kg
[2022-08-30 11:00] VITALS: BP 126/81
== END 2022-08-30 15:34 | disposition left against medical advice (07) ==
LOC: ER 10:47
DX: J45.909 Unspecified asthma, uncomplicated (principal); Z53.21 Procedure and treatment not carried out due to patient leaving prior to being seen by health care provider
CPT/HCPCS: 99281

== ENCOUNTER 2022-09-09 11:09 | Emergency (ER) | payer MEDICAID ==
[~2022-09-09] VITALS: Ht 172.7 cm; Wt 68.2 kg
[~2022-09-09 11:09] MED LIST changes: -ALBU8HFA PO
[2022-09-09 11:52] VITALS: BP 134/85; PULSE 108; RESP 16; TEMP 99; O2SAT 98
[2022-09-09] MEDS ORDERED: AZIT-164 PO (13:13)
== END 2022-09-09 13:18 | disposition home or self-care (01) ==
LOC: ER 11:10
DX: R07.9 Chest pain, unspecified (principal); R05.9 Cough, unspecified; F32.A Depression, unspecified; J45.909 Unspecified asthma, uncomplicated; Z87.81 Personal history of (healed) traumatic fracture; Z88.1 Allergy status to other antibiotic agents; Z88.5 Allergy status to narcotic agent; Z91.010 Allergy to peanuts; Z91.013 Allergy to seafood; Z91.018 Allergy to other foods; Z88.8 Allergy status to other drugs, medicaments and biological substances
CPT/HCPCS: 93005; 99283

== ENCOUNTER 2022-09-14 12:08 | Emergency (ER) | payer MEDICAID ==
[~2022-09-14] VITALS: Ht 172.7 cm; Wt 82.0 kg
[~2022-09-14 12:08] MED LIST changes: +AZIT-164 PO
[2022-09-14 12:10] VITALS: BP 127/98; PULSE 88; RESP 14; TEMP 98; O2SAT 99
== END 2022-09-14 17:34 | disposition left against medical advice (07) ==
LOC: ER 12:09
DX: M25.512 Pain in left shoulder (principal); Z53.21 Procedure and treatment not carried out due to patient leaving prior to being seen by health care provider
CPT/HCPCS: 99281

== ENCOUNTER 2022-09-20 07:57 | Emergency (ER) | payer MEDICAID ==
[~2022-09-20] VITALS: Ht 167.6 cm; Wt 100.0 kg
--- NOTE | 2022-09-20 09:11 | NUR ---
[facility]
[2022-09-20 09:26] VITALS: BP 130/76; PULSE 87; RESP 18; TEMP 98.3; O2SAT 97
== END 2022-09-20 09:42 | disposition home or self-care (01) ==
LOC: ER 07:57
DX: T78.01XA Anaphylactic reaction due to peanuts, initial encounter (principal); R22.1 Localized swelling, mass and lump, neck; X58.XXXA Exposure to other specified factors, initial encounter
CPT/HCPCS: 99283

== ENCOUNTER 2022-10-04 10:39 | Emergency (ER) | payer MEDICAID ==
[~2022-10-04] VITALS: Ht 172.7 cm; Wt 97.4 kg
[~2022-10-04 10:39] MED LIST changes: -AZIT-164 PO
[2022-10-04 10:41] VITALS: BP 136/74; PULSE 97; RESP 16; TEMP 98.8; O2SAT 96
== END 2022-10-04 14:38 | disposition left against medical advice (07) ==
LOC: ER 10:40
DX: M79.645 Pain in left finger(s) (principal); Z53.21 Procedure and treatment not carried out due to patient leaving prior to being seen by health care provider
CPT/HCPCS: 73140; 99281

== ENCOUNTER 2022-10-08 09:07 | Emergency (ER) | payer MEDICAID ==
[~2022-10-08] VITALS: Ht 172.7 cm; Wt 104.8 kg
[2022-10-08 09:29] VITALS: TEMP 99
[2022-10-08 11:00] VITALS: BP 135/70; PULSE 82; RESP 16; O2SAT 99
== END 2022-10-08 11:50 | disposition home or self-care (01) ==
LOC: ER 09:08
DX: M79.601 Pain in right arm (principal); M79.604 Pain in right leg; J45.909 Unspecified asthma, uncomplicated; Z91.041 Radiographic dye allergy status; Z88.1 Allergy status to other antibiotic agents; Z91.013 Allergy to seafood; Z91.010 Allergy to peanuts; Z79.899 Other long term (current) drug therapy
CPT/HCPCS: 99284

== ENCOUNTER 2022-10-12 11:05 | Emergency (ER) | payer MEDICAID ==
[~2022-10-12] VITALS: Ht 172.7 cm; Wt 90.0 kg
[2022-10-12 11:17] VITALS: BP 142/78; PULSE 100; RESP 18; TEMP 97.8; O2SAT 98
== END 2022-10-12 14:08 | disposition left against medical advice (07) ==
LOC: ER 11:06
DX: H57.11 Ocular pain, right eye (principal); H53.8 Other visual disturbances; Z53.21 Procedure and treatment not carried out due to patient leaving prior to being seen by health care provider
CPT/HCPCS: 99281

== ENCOUNTER 2022-11-04 09:59 | Emergency (ER) | payer MEDICAID | END 2022-11-04 11:11 | disposition left against medical advice (07) | LOC: ER 09:59 | DX: R06.02 Shortness of breath (principal); Z53.21 Procedure and treatment not carried out due to patient leaving prior to being seen by health care provider ==

== ENCOUNTER 2022-12-09 09:09 | Emergency (ER) | payer MEDICAID ==
[~2022-12-09] VITALS: Ht 172.7 cm; Wt 101.5 kg
--- NOTE | 2022-12-09 10:31 | NUR ---
0931 I have reviewed and agree with all interventions, assessments performed and documented by CHINYERE Holguin.
[2022-12-09 10:58] VITALS: BP 128/71; PULSE 62; RESP 16; TEMP 98.2; O2SAT 100
== END 2022-12-09 11:00 | disposition home or self-care (01) ==
LOC: ER 09:11
DX: M79.631 Pain in right forearm (principal); J45.909 Unspecified asthma, uncomplicated; F32.A Depression, unspecified; Z87.81 Personal history of (healed) traumatic fracture; Z88.8 Allergy status to other drugs, medicaments and biological substances; Z88.1 Allergy status to other antibiotic agents; Z88.5 Allergy status to narcotic agent; Z79.899 Other long term (current) drug therapy
CPT/HCPCS: 73090; 99284